=== PATIENT | male | born 1965 | race African-American/Black ===

== ENCOUNTER 2016-07-03 12:20 | Inpatient (IN) | payer OTHER ==
[2016-07-03 15:14] VITALS: BMI 25.1
--- NOTE | 2016-07-03 16:33 | HP ---
COWS - Scale Resting Pulse: 1= [place] 81-100 Sweatin= Chills/Flushing Restless Observation: 1= Difficult to Sit Still Pupil Size: 1= Pupils >than Normal Bone or Joint Aches: 2= Severe Diffuse Aches Runny Nose/ Eye Tearin= Runny Nose/Eyes GI Upset > 30mins: 2= Nausea/Diarrhea Tremor Observation: 2= Slight Tremor Visible Yawning Observation: 0= None Anxiety or Irritability: 2=Irritable/Anxious Goose Flesh Skin: 0=Smooth Skin COWS Score: 14 CIWA Score - CIWA Score Nausea/Vomitin-Mild Nausea/No Vomiting Muscle Tremors: 4-Moderate,w/Arms Extend Anxiety: 4-Mod. Anxious/Guarded Agitation: 4-Moderately Restless Paroxysmal Sweats: 1-Minimal Palms Moist Orientation: 3-Disoriented Date>2 days Tacttile Disturbances: 0-None Auditory Disturbances: 0-None Visual Disturbances: 0-None Headache: 0-None Present CIWA-Ar Total Score: 17 Admission [facility] - HPI Chief Complaint: withdrawal sx Allergies/Adverse Reactions: Allergies Allergy/AdvReac Type Severity Reaction Status Date / Time No Known Allergies Allergy Verified 07/03/16 15:54 History of Present Illness: 50 years old male with long history of alcohol, opiate, nicotine, xanax dependence, has asthma and depression is admitted to detox Exam Limitations: No Limitations - Ebola screening Have you traveled outside of the country in the last 21 days: No Have you had contact with anyone from an Ebola affected area: No Have you been sick,other than usual withdrawal symptoms: No Do you have a fever: No - Review of Systems Constitutional: Chills, Loss of Appetite, Changes in sleep, Unintentional Wgt. Loss, Unexplained wgt Loss EENT: reports: No Symptoms Reported Respiratory: reports: No Symptoms reported Cardiac: reports: No Symptoms Reported GI: reports: Nausea, Poor Appetite, Poor Fluid Intake, Abdominal cramping : reports: No Symptoms Reported Musculoskeletal: reports: Back Pain, Joint Pain, Muscle Pain, Neck Pain Integumentary: reports: No Symptoms Reported Neuro: reports: Tingling Endocrine: reports: No Symptoms Reported Hematology: reports: No Symptoms Reported Psychiatric: reports: Judgement Intact, Depressed Other Systems: Reviewed and Negative Patient History - Patient Medical History Hx Anemia: No Hx Asthma: Yes (Pt is on MDI) Hx Chronic Obstructive Pulmonary Disease (COPD): No Hx Cancer: No Hx Cardiac Disorders: No Hx Congestive Heart Failure: No Hx Hypertension: No Hx Hypercholesterolemia: No Hx Pacemaker: No HX Cerebrovascular Accident: No Hx Seizures: No Hx Dementia: No Hx Diabetes: No Hx Gastrointestinal Disorders: No Hx Liver Disease: No Hx Genitourinary Disorders: No Hx Sexually Transmitted Disorders: No Hx Renal Disease (ESRD): No Hx Thyroid Disease: No Hx Human Immunodeficiency Virus (HIV): No Hx Hepatitis C: No Hx Depression: Yes Hx Suicide Attempt: No Hx Bipolar Disorder: No Hx Schizophrenia: No - Patient Surgical History Past Surgical History: Yes Hx Orthopedic Surgery: Yes (R shoulder sx) Anesthesia Reaction: No - PPD History Previous Implant?: Yes Documented Results: Negative w/o proof Implanted On Prior [facility] Admission?: Yes Date: 12/04/11 Results: Neg PPD to be Administered?: Yes - Smoking Cessation Smoking history: Current every day smoker Have you smoked in the past 12 months: Yes Aproximately how many cigarettes per day: 20 Cigars Per Day: 0 Hx Chewing Tobacco Use: No Initiated information on smoking cessation: Yes 'Breaking Loose' booklet given: 07/03/16 - Substance & Tx. History Hx Alcohol Use: Yes Hx Substance Use: Yes Substance Use Type: Alcohol, Cocaine, Opiates, Tranquilizers Hx Substance Use Treatment: Yes - Substances Abused Heroin Route: Inhalation Frequency: Daily Amount used: 20 bags Age of first use: 25 Date of Last Use: 07/02/16 Alcohol Route: Oral Frequency: Daily Amount used: 1 pint sharonda Age of first use: 15 Date of Last Use: 07/02/16 Cocaine Route: Smoking Frequency: Daily Amount used: $120 Age of first use: 15 Date of Last Use: 07/03/16 Alprazolam (Xanax) Route: Oral Frequency: Daily Amount used: 4mg Age of first use: 45 Date of Last Use: 07/02/16 Family Disease History - Family Disease History Family Disease History: CA: Father () Admission Physical Exam [facility] - Vital Signs Vital Signs: Vital Signs - 24 hr 07/03/16 15:10 Temperature 97 F L Pulse Rate 81 Respiratory 20 Rate Blood Pressure 134/81 - Physical General Appearance: Yes: Appropriately Dressed, Mild Distress, Thin, Tremorous, Irritable, Sweating, Anxious HEENTM: Yes: Hearing grossly Normal, Normal ENT Inspection, Normocephalic, Normal Voice Respiratory: Yes: Chest Non-Tender, Lungs Clear, Normal Breath Sounds, No Respiratory Distress, No Accessory Muscle Use Neck: Yes: Supple, Trachea in good position Breast: Yes: Breasts Symetrical Cardiology: Yes: Regular Rhythm, Regular Rate, S1, S2 Abdominal: Yes: Non Tender, Soft, Increased Bowel Sounds Genitourinary: Yes: Within Normal Limits Back: Yes: Normal Inspection Musculoskeletal: Yes: full range of Motion, Gait Steady, Back pain, Muscle Pain Extremities: Yes: Normal Range of Motion, Non-Tender, Tremors Neurological: Yes: Alert, Motor Strength 5/5, Normal Response, Depressed Affect Integumentary: Yes: Warm Lymphatic: Yes: Within Normal Limits - Diagnostic (1) Alcohol dependence with uncomplicated withdrawal Current Visit: Yes Status: Acute (2) Opioid dependence with withdrawal Current Visit: Yes Status: Acute (3) Sedative, hypnotic or anxiolytic dependence with withdrawal, uncomplicated Current Visit: Yes Status: Acute (4) Cocaine dependence, uncomplicated Current Visit: Yes Status: Chronic (5) Nicotine dependence Current Visit: Yes Status: Acute Qualifiers: Nicotine product type: cigarettes Substance use status: in withdrawal Qualified Code(s): F17.213 - Nicotine dependence, cigarettes, with withdrawal (6) Asthma Current Visit: Yes Status: Acute Qualifiers: Asthma severity: mild intermittent Asthma complication type: with status asthmaticus Qualified Code(s): J45.22 - Mild intermittent asthma with status asthmaticus (7) Weight loss Current Visit: Yes Status: Acute Cleared for Admission [facility] - Detox or Rehab [facility] Level of Care: Medically Managed Detox Regimen/Protocol: Methadone/Librium [facility] Breath Alcohol Content Breath Alcohol Content: 0 Vital Signs - Vital Signs Vital Signs Refused: No Temperature: 97 F Temperature Source: Oral Pulse Rate: 81 Respiratory Rate: 20 Blood Pressure: 134/81 BP Location: Left Arm Blood Pressure Position: Sitting - Height Height: 5 ft 10 in - Weight Weight: 175 lb Weight Measurement Method: Standing Scale Body Mass Index (BMI): 25.1 - Bowel Function Bowel Movement: Yes Urine Drug Screen - Control Is Test Valid: Yes - Results Drug Screen Negative: No Urine Drug Screen Results: LIA-Cocaine, OPI-Opiates, MET-Methamphetamine, BZO- Benzodiazepines
[2016-07-03] MEDS ORDERED: MAGNESIUM CITRATE 300 ML BOTTLE PO PRN (16:40)
[2016-07-03] MEDS ORDERED: MAG HYDROX/AL HYDROX/SIMETH 30 ML UNIT-DOSE CUP PO PRN (16:40)
[2016-07-03] MEDS ORDERED: LOPERAMIDE HCL 2 MG CAPSULE PO PRN (16:40)
[2016-07-03] MEDS ORDERED: NICOTINE POLACRILEX 4 MG GUM BC PRN (16:40)
[2016-07-03] MEDS ORDERED: MAGNESIUM HYDROX 2400MG/30ML ORAL SUSPENSION 30 ML CUP PO PRN (16:40)
[2016-07-03] MEDS ORDERED: METHADONE HCL 10 MG TABLET (FOR DETOX USE ONLY) PO ONE ×2 (16:40→23:00)
[2016-07-03] MEDS ORDERED: IBUPROFEN 400 MG TABLET (FP) PO PRN (16:40)
[2016-07-03] MEDS ORDERED: guaiFENesin/D-METHORPHAN HB 10 ML UNIT-DOSE CUPS PO PRN (16:40)
[2016-07-03] MEDS ORDERED: MENTHOL/PHENOL 1 EACH UD MM PRN (16:40)
[2016-07-03] MEDS ORDERED: ACETAMINOPHEN 325 MG TABLET (FP) PO PRN (16:40)
[2016-07-03] MEDS ORDERED: P-EPHED 60MG/TRIPROLIDI 2.5MG TABLET PO PRN (16:40)
[2016-07-03] MEDS ORDERED: ALBUTEROL SO4 6.7 GM HFA INHALER IH PRN (16:44)
[2016-07-03] MEDS: chlordiazePOXIDE HCL 25 MG CAPSULE PO PRN (17:56)
[2016-07-03] MEDS: diphenhydrAMINE HCL 50 MG CAPSULE PO PRN (22:09)
[2016-07-03] MEDS: THIAMINE HCL 100 MG TABLET (FP) PO SCH (22:09)
[2016-07-03] MEDS: chlordiazePOXIDE HCL 25 MG CAPSULE PO SCH (22:09)
[2016-07-04 01:16] LABS: URINE APPEARANCE CLEAR; URINE BILIRUBIN NEGATIVE (NEGATIVE); URINE BLOOD NEGATIVE (NEGATIVE); URINE COLOR YELLOW; URINE GLUCOSE (UA) NEGATIVE (NEGATIVE); URINE KETONE NEGATIVE (NEGATIVE); URINE LEUK ESTERASE NEGATIVE (NEGATIVE); URINE NITRITE NEGATIVE (NEGATIVE); URINE PROTEIN NEGATIVE (NEGATIVE); URINE UROBILINOGEN NEGATIVE E.U./dl (0.2-1.0)
[2016-07-04] MEDS: chlordiazePOXIDE HCL 25 MG CAPSULE PO SCH ×4 (05:58→22:09)
[2016-07-04 09:51] LABS: MCH 28.2 pg (25.7-33.7); MCHC 33.1 g/dl (32.0-35.9); MEAN CELL VOLUME 85.2 fl (80-96); MEAN PLT VOLUME 7.7 fl (7.5-11.1); PLATELET COUNT 223 K/MM3 (134-434); RDW 12.7 % (11.9-15.9); WHITE BLOOD COUNT 4.6 K/mm3 (4.0-10.0)
--- NOTE | 2016-07-04 09:55 | PN ---
[facility] CIWA - CIWA Score Nausea/Vomitin-No Nausea/No Vomiting Muscle Tremors: 4-Moderate,w/Arms Extend Anxiety: 4-Mod. Anxious/Guarded Agitation: 4-Moderately Restless Paroxysmal Sweats: 1-Minimal Palms Moist Orientation: 0-Oriented Tacttile Disturbances: 3-Moderate Itch/Numb/Burn Auditory Disturbances: 0-None Visual Disturbances: 0-None Headache: 0-None Present CIWA-Ar Total Score: 16 S COWS - Scale Resting Pulse: 0= [place] 80 or Below Sweatin= Chills/Flushing Restless Observation: 3= Extraneous Movement Pupil Size: 2= Moderately Dilated Bone or Joint Aches: 4=Acute Joint/Muscle Pain Runny Nose/ Eye Tearin= Nasal Congestion GI Upset > 30mins: 1= Stomach Cramp Tremor Observation of Outstretched Hands: 1= Tremor [place], Not Seen Yawning Observation: 2= >3x During Session Anxiety or Irritability: 2=Irritable/Anxious Goose Flesh Skin: 0=Smooth Skin COWS Score: 17 [facility] Progress Note (SOAP) Subjective: ANXIETY,SWEATS,CHILLS,FATIGUE. Objective: 07/04/16 09:54 Vital Signs Temperature 96.8 F L 07/04/16 09:23 Pulse Rate 71 07/04/16 09:23 Respiratory Rate 19 07/04/16 09:23 Blood Pressure 104/70 07/04/16 09:23 O2 Sat by Pulse Oximetry (%) Laboratory Last Values Urine Color Yellow 07/03/16 23:02 Urine Appearance Clear 07/03/16 23:02 Urine pH 5.0 (5.0-8.0) 07/03/16 23:02 Ur Specific [place] 1.031 (1.001-1.035) 07/03/16 23:02 Urine Protein Negative (NEGATIVE) 07/03/16 23:02 Urine Glucose (UA) Negative (NEGATIVE) 07/03/16 23:02 Urine Ketones Negative (NEGATIVE) 07/03/16 23:02 Urine Blood Negative (NEGATIVE) 07/03/16 23:02 Urine Nitrite Negative (NEGATIVE) 07/03/16 23:02 Urine Bilirubin Negative (NEGATIVE) 07/03/16 23:02 Urine Urobilinogen Negative E.U./dl (0.2-1.0) 07/03/16 23:02 Ur Leukocyte Esterase Negative (NEGATIVE) 07/03/16 23:02 Assessment: 07/04/16 09:54 WITHDRAWAL SX Plan: CONTINUE DETOX
[2016-07-04 10:00] LABS: ALBUMIN 4.2 g/dl (3.4-5.0); BILIRUBIN,TOTAL 0.3 mg/dL (0.2-1.0); CALCIUM 9.2 mg/dL (8.5-10.1); COCKROFT - GAULT 65.41; CREATININE 1.5 mg/dL (0.7-1.3); TOT PROT 7.1 g/dl (6.4-8.2)
[2016-07-04] MEDS ORDERED: METHADONE HCL 10 MG TABLET (FOR DETOX USE ONLY) PO SCH (10:00)
[2016-07-04] MEDS: PRENATAL VITAMINS W/ FOLIC ACID TABLET (FP) PO SCH (10:06)
[2016-07-04] MEDS: NICOTINE 21 MG/24 HOURS TOPICAL PATCH TD SCH (10:08)
--- NOTE | 2016-07-04 10:51 | CONSULT ---
[facility] Psychiatric Consult - Data Date of interview: 07/04/16 Admission source: [facility] Identifying data: This is 60 years old male with history of Bipolar disorder intoxicated with: Alcohol, Opioids, Cocaine, Xanax and Nicotine Substance Abuse History: - Smoking Cessation. Smoking history: Current every day smoker. Have you smoked in the past 12 months: Yes. Aproximately how many cigarettes per day: 20. Cigars Per Day: 0. Hx Chewing Tobacco Use: No. Initiated information on smoking cessation: Yes. 'Breaking Loose' booklet given : 07/03/16. - Substance & Tx. History. Hx Alcohol Use: Yes. Hx Substance Use : Yes. Substance Use Type: Alcohol, Cocaine, Opiates, Tranquilizers. Hx Substance Use Treatment: Yes. - Substances Abused. Heroin. Route: Inhalation. Frequency: Daily. Amount used: 20 bags. Age of first use: 25. Date of Last Use: 07/02/16. Alcohol. Route: Oral. Frequency: Daily. Amount used: 1 pint sharonda. Age of first use: 15. Date of Last Use: 07/02/16. Cocaine. Route: Smoking. Frequency: Daily. Amount used: $120. Age of first use: 15. Date of Last Use: 07/03/16. Alprazolam (Xanax). Route: Oral. Frequency: Daily. Amount used: 4mg. Age of first use: 45. Date of Last Use: Medical History: Asthma, Seizure history, Syncope history Psychiatric History: Patient is poor historyan, as per computer there is a history of Bipolar disorder, patient reports no medications taking prior to admission Physical/Sexual Abuse/Trauma History: Denies Additional Comment: Observation. Detox Unit [place] Protocol Mental Status Exam - Mental Status Exam Alert and Oriented to: Person Cognitive Function: Fair Patient Appearance: Unkempt Mood: Sad Affect: Flat Patient Behavior: Sedated, Fatigued Speech Pattern: Delayed Voice Loudness: Moderately Soft/Quiet Thought Process: Circumstantial Thought Disorder: Present Hallucinations: Denies Suicidal Ideation: Denies Homicidal Ideation: Denies Insight/Judgement: Fair Sleep: Difficulty falling asleep Appetite: Weight loss Muscle strength/Tone: Mild Hypotonicity Gait/Station: Shuffling Additional Comments: Observation. Detox Unit Care Protocol Psychiatric Findings - Problem List ([place] 1, 2,3) (1) Alcohol dependence with uncomplicated withdrawal Current Visit: Yes Status: Acute (2) Nicotine dependence Current Visit: Yes Status: Acute Qualifiers: Nicotine product type: cigarettes Substance use status: in withdrawal Qualified Code(s): F17.213 - Nicotine dependence, cigarettes, with withdrawal (3) Opioid dependence with withdrawal Current Visit: Yes Status: Acute (4) Sedative, hypnotic or anxiolytic dependence with withdrawal, uncomplicated Current Visit: Yes Status: Acute (5) Cocaine dependence, uncomplicated Current Visit: Yes Status: Chronic (6) Alcohol dependence Current Visit: No Status: Active (7) Bipolar disorder Current Visit: No Status: Active (8) Cocaine dependence Current Visit: No Status: Active (9) Opioid dependence Current Visit: No Status: Active - Initial Treatment Plan Initial Treatment Plan: Observation. Detox Unit Care Protocol
--- NOTE | 2016-07-04 11:48 | EKG ---
Test Reason : Blood Pressure : / mmHG Vent. Rate : 064 BPM Atrial Rate : 064 BPM P-R Int : 222 ms QRS Dur : 110 ms QT Int : 412 ms P-R-T Axes : 060 021 039 degrees QTc Int : 425 ms SINUS RHYTHM WITH 1ST DEGREE A-V BLOCK INCOMPLETE RIGHT BUNDLE BRANCH BLOCK BORDERLINE ECG NO PREVIOUS ECGS AVAILABLE Confirmed by ALLISON DELCID MD ([id number]) on 07/04/2016 11:48:09 AM Referred By: Confirmed By:ALLISON DELCID MD
[2016-07-04 13:50] LABS: HIV 1 & 2 AB NEGATIVE; HIV 1 AGp24 NEGATIVE
[2016-07-04] MEDS: THIAMINE HCL 100 MG TABLET (FP) PO SCH (22:08)
[2016-07-04] MEDS: diphenhydrAMINE HCL 50 MG CAPSULE PO PRN (22:08)
[2016-07-05] MEDS: chlordiazePOXIDE HCL 25 MG CAPSULE PO SCH ×3 (06:54→17:40)
[2016-07-05] MEDS: PRENATAL VITAMINS W/ FOLIC ACID TABLET (FP) PO SCH (10:05)
[2016-07-05] MEDS: NICOTINE 21 MG/24 HOURS TOPICAL PATCH TD SCH (10:05)
[2016-07-05] MEDS: METHADONE HCL 5 MG TABLET (FOR DETOX USE ONLY) PO SCH (10:05)
--- NOTE | 2016-07-05 10:31 | PN ---
[facility] CIWA - CIWA Score Nausea/Vomitin-Mild Nausea/No Vomiting Muscle Tremors: 4-Moderate,w/Arms Extend Anxiety: 3 Agitation: 3 Paroxysmal Sweats: 3 Orientation: 0-Oriented Tacttile Disturbances: 0-None Auditory Disturbances: 0-None Visual Disturbances: 0-None Headache: 0-None Present CIWA-Ar Total Score: 14 S COWS - Scale Resting Pulse: 1= [place] 81-100 Sweatin=Flushed/Facial Moisture Restless Observation: 1= Difficult to Sit Still Pupil Size: 0= Normal to Room Light Bone or Joint Aches: 1= Mild Discomfort Runny Nose/ Eye Tearin= Runny Nose/Eyes GI Upset > 30mins: 2= Nausea/Diarrhea Tremor Observation of Outstretched Hands: 2= Slight Tremor Visible Yawning Observation: 1= 1-2x During Session Anxiety or Irritability: 2=Irritable/Anxious Goose Flesh Skin: 0=Smooth Skin COWS Score: 14 [facility] Progress Note (SOAP) Subjective: Anxiety,tremors,sweating,interrupted sleep,restless,muscle aches Objective: 07/05/16 10:28 Vital Signs - 8 hr 07/05/16 03:30 Respiratory 18 Rate Laboratory Tests 07/03/16 07/03/16 07/04/16 06:00 23:02 06:00 WBC 4.6 RBC 4.76 Hgb 13.4 Hct 40.6 MCV 85.2 MCHC 33.1 RDW 12.7 Plt Count 223 MPV 7.7 Sodium Potassium Chloride Carbon Dioxide Anion Gap BUN Creatinine Creat Clearance w eGFR Random Glucose Calcium Total Bilirubin AST ALT Alkaline Phosphatase Total Protein Albumin Urine Color Yellow Urine Appearance Clear Urine pH 5.0 Ur Specific [place] 1.031 Urine Protein Negative Urine Glucose (UA) Negative Urine Ketones Negative Urine Blood Negative Urine Nitrite Negative Urine Bilirubin Negative Urine Urobilinogen Negative Ur Leukocyte Esterase Negative RPR Titer HIV 1&2 Antibody Screen Negative HIV P24 Antigen Negative 07/04/16 07/04/16 06:00 06:00 WBC RBC Hgb Hct MCV MCHC RDW Plt Count MPV Sodium 141 Potassium 4.1 Chloride 104 Carbon Dioxide 29 Anion Gap 8 BUN 17 Creatinine 1.5 H D Creat Clearance w eGFR 49.34 Random Glucose 116 H D Calcium 9.2 Total Bilirubin 0.3 AST 29 D ALT 27 Alkaline Phosphatase 66 Total Protein 7.1 D Albumin 4.2 D Urine Color Urine Appearance Urine pH Ur Specific [place] Urine Protein Urine Glucose (UA) Urine Ketones Urine Blood Urine Nitrite Urine Bilirubin Urine Urobilinogen Ur Leukocyte Esterase RPR Titer Nonreactive HIV 1&2 Antibody Screen HIV P24 Antigen labs noted Assessment: 07/05/16 10:30 Withdrawal sx. Plan: Continue detox
[2016-07-05] MEDS: THIAMINE HCL 100 MG TABLET (FP) PO SCH (22:00)
[2016-07-05] MEDS: chlordiazePOXIDE 5 MG CAPSULE PO SCH (22:00)
[2016-07-05] MEDS: diphenhydrAMINE HCL 50 MG CAPSULE PO PRN (22:01)
[2016-07-06] MEDS: chlordiazePOXIDE 5 MG CAPSULE PO SCH ×2 (06:04→10:18)
[2016-07-06] MEDS: NICOTINE 21 MG/24 HOURS TOPICAL PATCH TD SCH (10:18)
[2016-07-06] MEDS: PRENATAL VITAMINS W/ FOLIC ACID TABLET (FP) PO SCH (10:18)
[2016-07-06] MEDS: METHADONE HCL 5 MG TABLET (FOR DETOX USE ONLY) PO SCH (10:18)
[2016-07-06 11:31] VITALS: PULSE 74
[2016-07-06 13:48] VITALS: BP 108/69; TEMP 96.6
[2016-07-06] MEDS: chlordiazePOXIDE HCL 25 MG CAPSULE PO PRN (13:51)
--- NOTE | 2016-07-06 16:36 | DS ---
[facility] Detox Discharge Summary Admission Date: 07/03/16 Discharge Date: 07/06/16 - History Present History: Alcohol Dependence, Cocaine Dependence, Opioid Dependence, Sedative Dependence Additional Comments: ADVISED PATIENT TO FOLLOW-UP WITH [facility] FOR GENERAL MEDICAL ASSESSMENT. Pertinent Past History: Asthma, Depression. - Physical Exam Results Vital Signs: Vital Signs Temperature 96.6 F L 07/06/16 13:47 Pulse Rate 74 07/06/16 13:47 Respiratory Rate 18 07/06/16 13:47 Blood Pressure 108/69 07/06/16 13:47 O2 Sat by Pulse Oximetry (%) Pertinent Admission Physical Exam Findings: WITHDRAWAL SYMPTOMS. Laboratory Last Values WBC 4.6 K/mm3 (4.0-10.0) 07/04/16 06:00 RBC 4.76 M/mm3 (4.00-5.60) 07/04/16 06:00 Hgb 13.4 GM/dL (11.7-16.9) 07/04/16 06:00 Hct 40.6 % (35.4-49) 07/04/16 06:00 MCV 85.2 fl (80-96) 07/04/16 06:00 MCHC 33.1 g/dl (32.0-35.9) 07/04/16 06:00 RDW 12.7 % (11.9-15.9) 07/04/16 06:00 Plt Count 223 K/MM3 (134-434) 07/04/16 06:00 MPV 7.7 fl (7.5-11.1) 07/04/16 06:00 Sodium 141 mmol/L (136-145) 07/04/16 06:00 Potassium 4.1 mmol/L (3.5-5.1) 07/04/16 06:00 Chloride 104 mmol/L (98-107) 07/04/16 06:00 Carbon Dioxide 29 mmol/L (21-32) 07/04/16 06:00 Anion Gap 8 (8-16) 07/04/16 06:00 BUN 17 mg/dL (7-18) 07/04/16 06:00 Creatinine 1.5 mg/dL (0.7-1.3) H D 07/04/16 06:00 Creat Clearance w eGFR 49.34 (>60) 07/04/16 06:00 Random Glucose 116 mg/dL (74-106) H D 07/04/16 06:00 Calcium 9.2 mg/dL (8.5-10.1) 07/04/16 06:00 Total Bilirubin 0.3 mg/dL (0.2-1.0) 07/04/16 06:00 AST 29 U/L (15-37) D 07/04/16 06:00 ALT 27 U/L (12-78) 07/04/16 06:00 Alkaline Phosphatase 66 U/L (45-117) 07/04/16 06:00 Total Protein 7.1 g/dl (6.4-8.2) D 07/04/16 06:00 Albumin 4.2 g/dl (3.4-5.0) D 07/04/16 06:00 Urine Color Yellow 07/03/16 23:02 Urine Appearance Clear 07/03/16 23:02 Urine pH 5.0 (5.0-8.0) 07/03/16 23:02 Ur Specific [place] 1.031 (1.001-1.035) 07/03/16 23:02 Urine Protein Negative (NEGATIVE) 07/03/16 23:02 Urine Glucose (UA) Negative (NEGATIVE) 07/03/16 23:02 Urine Ketones Negative (NEGATIVE) 07/03/16 23:02 Urine Blood Negative (NEGATIVE) 07/03/16 23:02 Urine Nitrite Negative (NEGATIVE) 07/03/16 23:02 Urine Bilirubin Negative (NEGATIVE) 07/03/16 23:02 Urine Urobilinogen Negative E.U./dl (0.2-1.0) 07/03/16 23:02 Ur Leukocyte Esterase Negative (NEGATIVE) 07/03/16 23:02 RPR Titer Nonreactive (NONREACTIVE) 07/04/16 06:00 HIV 1&2 Antibody Screen Negative 07/03/16 06:00 HIV P24 Antigen Negative 07/03/16 06:00 LABS NOTED. - Treatment Hospital Course: Detoxed Safely - Medication Discharge Medications: Ambulatory Orders Albuterol Sulfate Inhaler - [Ventolin Hfa Inhaler -] 2 inh PO Q4H PRN 07/03/16 - Diagnosis (1) Alcohol dependence with uncomplicated withdrawal Status: Acute (2) Asthma Status: Chronic Qualifiers: Asthma severity: mild intermittent Asthma complication type: uncomplicated Qualified Code(s): J45.20 - Mild intermittent asthma, uncomplicated (3) Nicotine dependence Status: Chronic Qualifiers: Nicotine product type: cigarettes Substance use status: in withdrawal Qualified Code(s): F17.213 - Nicotine dependence, cigarettes, with withdrawal (4) Opioid dependence with withdrawal Status: Acute (5) Sedative, hypnotic or anxiolytic dependence with withdrawal, uncomplicated Status: Acute (6) Cocaine dependence, uncomplicated Status: Acute (7) Weight loss Status: Acute - AMA Did Patient Leave Against Medical Advice: Yes (PATIENT DID NOT WANT TO STAY ON UNIT TO COMPLETE DETOX REGIMEN.)
[2016-07-06] MEDS ORDERED: chlordiazePOXIDE HCL 10 MG CAPSULE PO SCH (23:00)
[2016-07-07] MEDS ORDERED: METHADONE HCL 10 MG TABLET (FOR DETOX USE ONLY) PO SCH (10:00)
[2016-07-08] MEDS ORDERED: METHADONE HCL 5 MG TABLET (FOR DETOX USE ONLY) PO SCH (06:00)
== END 2016-07-06 15:02 | disposition left against medical advice (07) | DRG 770 ==
LOC: YASAS 12:20 → Y3N 16:54
PROVIDERS: ADMIT Internal Medicine; ATTEND Internal Medicine
PROC: HZ2ZZZZ Detoxification Services for Substance Abuse Treatment (ICD-10-PCS; principal; 2016-07-06)
DX: F11.23 Opioid dependence with withdrawal (principal); F13.230 Sedative, hypnotic or anxiolytic dependence with withdrawal, uncomplicated; F10.230 Alcohol dependence with withdrawal, uncomplicated; F14.20 Cocaine dependence, uncomplicated; F17.210 Nicotine dependence, cigarettes, uncomplicated; F31.9 Bipolar disorder, unspecified; J45.20 Mild intermittent asthma, uncomplicated; R63.4 Abnormal weight loss; Z68.25 Body mass index [BMI] 25.0-25.9, adult
CPT/HCPCS: 36415; 80053; 81003; 85027; 86593; 87389; 93005; 93010

== ENCOUNTER 2017-07-14 09:18 | Inpatient (IN) | payer OTHER ==
[2017-07-14 09:39] VITALS: BMI 25.2
--- NOTE | 2017-07-14 13:37 | HP ---
COWS - Scale Resting Pulse: 1= [place] 81-100 Sweatin= Chills/Flushing Restless Observation: 1= Difficult to Sit Still Pupil Size: 1= Pupils >than Normal Bone or Joint Aches: 2= Severe Diffuse Aches Runny Nose/ Eye Tearin= Nasal Congestion GI Upset > 30mins: 1= Stomach Cramp Tremor Observation: 2= Slight Tremor Visible Yawning Observation: 2= >3x During Session Anxiety or Irritability: 2=Irritable/Anxious Goose Flesh Skin: 0=Smooth Skin COWS Score: 14 CIWA Score - CIWA Score Nausea/Vomitin-Mild Nausea/No Vomiting Muscle Tremors: 4-Moderate,w/Arms Extend Anxiety: 4-Mod. Anxious/Guarded Agitation: 4-Moderately Restless Paroxysmal Sweats: 1-Minimal Palms Moist Orientation: 1-Uncertain about Date Tacttile Disturbances: 1-Very Mild Itch/Numbness Auditory Disturbances: 0-None Visual Disturbances: 0-None Headache: 1-Very Mild CIWA-Ar Total Score: 17 Admission ROS S - HPI Chief Complaint: withdrawal sx opioid Allergies/Adverse Reactions: Allergies Allergy/AdvReac Type Severity Reaction Status Date / Time No Known Allergies Allergy Verified 07/14/17 13:35 History of Present Illness: 51 years old male with long history of opioid nicotine dependence has asthma is admitted to detox Exam Limitations: No Limitations - Ebola screening Have you traveled outside of the country in the last 21 days: No (N) Have you had contact with anyone from an Ebola affected area: No Have you been sick,other than usual withdrawal symptoms: No Do you have a fever: No - Review of Systems Constitutional: Changes in sleep EENT: reports: No Symptoms Reported Respiratory: reports: No Symptoms reported Cardiac: reports: No Symptoms Reported GI: reports: Nausea, Poor Fluid Intake, Abdominal cramping : reports: No Symptoms Reported Musculoskeletal: reports: Back Pain, Joint Pain, Muscle Pain, Neck Pain Integumentary: reports: No Symptoms Reported Neuro: reports: Tremors Endocrine: reports: No Symptoms Reported Hematology: reports: No Symptoms Reported Psychiatric: reports: Judgement Intact, Anxious, Depressed Other Systems: Reviewed and Negative Patient History - Patient Medical History Hx Anemia: No Hx Asthma: Yes (Pt is on MDI) Hx Chronic Obstructive Pulmonary Disease (COPD): No Hx Cancer: No Hx Cardiac Disorders: No Hx Congestive Heart Failure: No Hx Hypertension: No Hx Hypercholesterolemia: No Hx Pacemaker: No HX Cerebrovascular Accident: No Hx Seizures: No Hx Dementia: No Hx Diabetes: No Hx Gastrointestinal Disorders: No Hx Liver Disease: No Hx Genitourinary Disorders: No Hx Sexually Transmitted Disorders: No Hx Renal Disease (ESRD): No Hx Thyroid Disease: No Hx Human Immunodeficiency Virus (HIV): No Hx Hepatitis C: No Hx Depression: Yes Hx Suicide Attempt: No Hx Bipolar Disorder: No Hx Schizophrenia: No - Patient Surgical History Past Surgical History: Yes Hx Orthopedic Surgery: Yes (R shoulder sx) Anesthesia Reaction: No - PPD History Previous Implant?: Yes Documented Results: Negative w/proof Implanted On Prior [facility] Admission?: Yes Date: 07/05/16 Results: Neg PPD to be Administered?: Yes - Smoking Cessation Smoking history: Current every day smoker Have you smoked in the past 12 months: Yes Aproximately how many cigarettes per day: 10 Cigars Per Day: 0 Hx Chewing Tobacco Use: No Initiated information on smoking cessation: Yes 'Breaking Loose' booklet given: 07/14/17 - Substance & Tx. History Hx Alcohol Use: Yes Hx Substance Use: Yes Substance Use Type: Alcohol, Cocaine, Opiates, Tranquilizers Hx Substance Use Treatment: Yes (06/2016) - Substances Abused Alcohol Route: Oral Frequency: Daily Amount used: 1 PINT DAILY (VODKA) Age of first use: 11 Date of Last Use: 07/12/17 Heroin Route: Injection Frequency: Daily Amount used: 1 BUNDLE DAILY $100 Age of first use: 22 Date of Last Use: 07/13/17 Cocaine Route: Inhalation Frequency: Daily Amount used: 1/2 GRAM DAILY Age of first use: 21 Date of Last Use: 07/13/17 Marijuana/Hashish Route: Smoking Frequency: 1-2 times per week Amount used: 1 JOINT DAILY Age of first use: 21 Date of Last Use: 07/11/17 Family Disease History - Family Disease History Family Disease History: CA: Father (), Mother (pancreatic) Admission Physical Exam BHS - Vital Signs Vital Signs: Vital Signs - 24 hr 07/14/17 09:31 Temperature 95.4 F L Pulse Rate 96 H Respiratory 20 Rate Blood Pressure 123/74 - Physical General Appearance: Yes: Appropriately Dressed, Moderate Distress, Thin, Tremorous, Irritable, Sweating, Anxious HEENTM: Yes: Hearing grossly Normal, Normocephalic, Normal Voice Respiratory: Yes: Chest Non-Tender, No Respiratory Distress, No Accessory Muscle Use, Wheezing, Inspiration Neck: Yes: Supple, Trachea in good position Breast: Yes: Breasts Symetrical, No Discharge Cardiology: Yes: S1, S2, Tachycardia, Irregular Abdominal: Yes: Non Tender, Soft Genitourinary: Yes: Within Normal Limits Back: Yes: Normal Inspection Musculoskeletal: Yes: full range of Motion, Gait Steady, Back pain, Muscle Pain Extremities: Yes: Normal Inspection (left inner elbow iv heroin prabha), Normal Range of Motion, Non-Tender Neurological: Yes: Alert, Motor Strength 5/5, Normal Response, Depressed Affect Integumentary: Yes: Warm, Track Carrillo (left inner elbow) Lymphatic: Yes: Within Normal Limits - Diagnostic (1) Alcohol dependence with uncomplicated withdrawal Current Visit: Yes Status: Acute (2) Opioid dependence with withdrawal Current Visit: Yes Status: Acute (3) Asthma Current Visit: Yes Status: Chronic Qualifiers: Asthma severity: mild Asthma persistence: intermittent Asthma complication type: uncomplicated Qualified Code(s): J45.20 - Mild intermittent asthma, uncomplicated (4) Nicotine dependence Current Visit: Yes Status: Acute Qualifiers: Nicotine product type: cigarettes Substance use status: in withdrawal Qualified Code(s): F17.213 - Nicotine dependence, cigarettes, with withdrawal Cleared for Admission [facility] - Detox or Rehab [facility] Level of Care: Medically Managed Detox Regimen/Protocol: Methadone/Librium [facility] Breath Alcohol Content Breath Alcohol Content: 0 Urine Drug Screen - Control Is Test Valid: Yes - Results Drug Screen Negative: No Urine Drug Screen Results: LIA-Cocaine, OPI-Opiates, BZO-Benzodiazepines
[2017-07-14] MEDS ORDERED: LOPERAMIDE HCL 2 MG CAPSULE PO PRN (13:48)
[2017-07-14] MEDS ORDERED: P-EPHED 60MG/TRIPROLIDI 2.5MG TABLET PO PRN (13:48)
[2017-07-14] MEDS ORDERED: MENTHOL/PHENOL 1 EACH UD MM PRN (13:48)
[2017-07-14] MEDS ORDERED: MAGNESIUM HYDROX 2400MG/30ML ORAL SUSPENSION 30 ML CUP PO PRN (13:48)
[2017-07-14] MEDS ORDERED: ACETAMINOPHEN 325 MG TABLET (FP) PO PRN (13:48)
[2017-07-14] MEDS ORDERED: IBUPROFEN 400 MG TABLET (FP) PO PRN (13:48)
[2017-07-14] MEDS ORDERED: guaiFENesin/D-METHORPHAN HB 10 ML UNIT-DOSE CUPS PO PRN (13:48)
[2017-07-14] MEDS ORDERED: MAG HYDROX/AL HYDROX/SIMETH 30 ML UNIT-DOSE CUP PO PRN (13:48)
[2017-07-14] MEDS ORDERED: NICOTINE POLACRILEX 2 MG GUM BUC PRN (13:48)
[2017-07-14] MEDS ORDERED: MAGNESIUM CITRATE 300 ML BOTTLE PO PRN (13:48)
[2017-07-14] MEDS ORDERED: chlordiazePOXIDE HCL 25 MG CAPSULE PO PRN (13:48)
[2017-07-14] MEDS ORDERED: ALBUTEROL SO4 18 GM HFA INHALER IH PRN (13:50)
[2017-07-14] MEDS ORDERED: ALBUTEROL SO4 0.083% IH SOL 2.5 MG/3 ML VIAL.NEB. NEB PRN (14:54)
[2017-07-14] MEDS ORDERED: METHADONE HCL 10 MG TABLET (FOR DETOX USE ONLY) PO ONE ×2 (15:30→23:00)
[2017-07-14] MEDS: NICOTINE 14 MG/24 HOURS TOPICAL PATCH TD SCH (15:43)
--- NOTE | 2017-07-14 16:41 | CONSULT ---
[facility] Psychiatric Consult - Data Date of interview: 07/14/17 Admission source: [facility] Identifying data: Readmission to [facility] for this 51 y/o AA male seeking detox treatment on for alcohol,opioid,cocaine and cannabis dependence.Patient is ,a father of one,homeless,unemployed and supported on Public Assistance. Substance Abuse History: Confirmed by the patient in this session.Mr Godwin endorses a 40+ year history of alcohol abuse and approximately 25 years of continuous use of heroin,cocaine and marihuana.Details in current [facility] report as follows : Smoking history: Current every day smoker. Have you smoked in the past 12 months: Yes. Aproximately how many cigarettes per day: 10. Cigars Per Day: 0. Hx Chewing Tobacco Use: No. Initiated information on smoking cessation : Yes. 'Breaking Loose' booklet given: 07/14/17. - Substance & Tx. History. Hx Alcohol Use: Yes. Hx Substance Use: Yes. Substance Use Type: Alcohol, Cocaine, Opiates, Tranquilizers. Hx Substance Use Treatment: Yes (06/2016). - Substances Abused. Alcohol. Route: Oral. Frequency: Daily. Amount used: 1 PINT DAILY (VODKA). Age of first use: 11. Date of Last Use: 07/12/17. Heroin. Route: Injection. Frequency: Daily. Amount used: 1 BUNDLE DAILY $ 100. Age of first use: 22. Date of Last Use: 07/13/17. Cocaine. Route: Inhalation. Frequency: Daily. Amount used: 1/2 GRAM DAILY. Age of first use: 21. Date of Last Use: 07/13/17. Marijuana/Hashish. Route: Smoking. Frequency: 1-2 times per week. Amount used: 1 JOINT DAILY. Age of first use: 21. Date of Last Use: 07/11/17 Medical History: Bronchial asthma and a history of orthosurgery (right shoulder) . Psychiatric History: Patient denies. Physical/Sexual Abuse/Trauma History: Patient denies. Additional Comment: Urine Drug Screen Results: LIA-Cocaine, OPI-Opiates, BZO- Benzodiazepines.Noted. Mental Status Exam - Mental Status Exam Alert and Oriented to: Time, Place, Person Cognitive Function: Good Patient Appearance: Well Groomed Mood: Hopeful, Euthymic Affect: Appropriate, Normal Range Patient Behavior: Fatigued, Appropriate, Cooperative Speech Pattern: Clear, Appropriate Voice Loudness: Normal Thought Process: Intact, Goal Oriented Thought Disorder: Not Present Hallucinations: Denies Suicidal Ideation: Denies Homicidal Ideation: Denies Insight/Judgement: Poor Sleep: Poorly, Difficulty falling asleep Appetite: Good (observed eating his meal on admission) Muscle strength/Tone: Normal Gait/Station: Normal Psychiatric Findings - Problem List ([place] 1, 2,3) (1) Opioid dependence with withdrawal Current Visit: Yes Status: Acute (2) Alcohol dependence with uncomplicated withdrawal Current Visit: Yes Status: Acute (3) Cocaine dependence Current Visit: Yes Status: Active (4) Nicotine dependence Current Visit: Yes Status: Acute Qualifiers: Nicotine product type: cigarettes Substance use status: in withdrawal Qualified Code(s): F17.213 - Nicotine dependence, cigarettes, with withdrawal (5) Insomnia Current Visit: Yes Status: Acute - Initial Treatment Plan Initial Treatment Plan: Psychoeducation.Sleep hygiene.Detoxification in progress.Ambien 5 mg po hs prn.Patient is made aware of risk of parasomnias ( sleep-walking).Consents (verbally) to this careplan.Observation.
[2017-07-14 18:07] LABS: URINE APPEARANCE CLOUDY; URINE BILIRUBIN NEGATIVE (<2.0 mg/dL); URINE BLOOD NEGATIVE (NEGATIVE); URINE COLOR DKYELLOW; URINE GLUCOSE (UA) NEGATIVE (NEGATIVE); URINE KETONE 1+ (NEGATIVE); URINE LEUK ESTERASE NEGATIVE (NEGATIVE); URINE NITRITE NEGATIVE (NEGATIVE); URINE PROTEIN NEGATIVE (NEGATIVE)
[2017-07-14] MEDS ORDERED: MELATONIN 5 MG TABLETS PO PRN (22:00)
[2017-07-14] MEDS: THIAMINE HCL 100 MG TABLET (FP) PO SCH (22:09)
[2017-07-14] MEDS: chlordiazePOXIDE HCL 25 MG CAPSULE PO SCH (22:09)
[2017-07-14] MEDS: ZOLPIDEM TARTRATE 5 MG TABLET PO PRN (22:10)
[2017-07-15] MEDS: chlordiazePOXIDE HCL 25 MG CAPSULE PO SCH ×4 (05:11→22:24)
--- NOTE | 2017-07-15 09:44 | PN ---
S CIWA - CIWA Score Nausea/Vomitin-No Nausea/No Vomiting Muscle Tremors: 4-Moderate,w/Arms Extend Anxiety: 4-Mod. Anxious/Guarded Agitation: 4-Moderately Restless Paroxysmal Sweats: 1-Minimal Palms Moist Orientation: 0-Oriented Tacttile Disturbances: 0-None Auditory Disturbances: 0-None Visual Disturbances: 0-None Headache: 0-None Present CIWA-Ar Total Score: 13 BHS COWS - Scale Resting Pulse: 0= [place] 80 or Below Sweatin= Chills/Flushing Restless Observation: 3= Extraneous Movement Pupil Size: 0= Normal to Room Light Bone or Joint Aches: 4=Acute Joint/Muscle Pain Runny Nose/ Eye Tearin= Nasal Congestion GI Upset > 30mins: 1= Stomach Cramp Tremor Observation of Outstretched Hands: 2= Slight Tremor Visible Yawning Observation: 0= None Anxiety or Irritability: 2=Irritable/Anxious Goose Flesh Skin: 0=Smooth Skin COWS Score: 14 S Progress Note (SOAP) Subjective: ANXIETY,TREMORS,STOMACH CRAMPS,BACK ACHE. Objective: 07/15/17 09:55 Vital Signs Temperature 96.4 F L 07/15/17 09:41 Pulse Rate 72 07/15/17 09:41 Respiratory Rate 20 07/15/17 09:41 Blood Pressure 109/76 07/15/17 09:41 O2 Sat by Pulse Oximetry (%) Laboratory Last Values Urine Color Dkyellow 07/14/17 17:49 Urine Appearance Cloudy 07/14/17 17:49 Urine pH 5.0 (5.0-8.0) 07/14/17 17:49 Ur Specific [place] 1.028 (1.001-1.035) 07/14/17 17:49 Urine Protein Negative (NEGATIVE) 07/14/17 17:49 Urine Glucose (UA) Negative (NEGATIVE) 07/14/17 17:49 Urine Ketones 1+ (NEGATIVE) H 07/14/17 17:49 Urine Blood Negative (NEGATIVE) 07/14/17 17:49 Urine Nitrite Negative (NEGATIVE) 07/14/17 17:49 Urine Bilirubin Negative (<2.0 mg/dL) 07/14/17 17:49 Urine Urobilinogen 2.0 mg/dL (0.2-1.0) 07/14/17 17:49 Ur Leukocyte Esterase Negative (NEGATIVE) 07/14/17 17:49 OTHER LABS PENDING Assessment: 07/15/17 09:55 WITHDRAWAL SX Plan: CONTINUE DETOX FLEXERIL 10 MG PO TID PRN FOR MUSCLE CRAMPS
[2017-07-15] MEDS ORDERED: CYCLOBENZAPRINE HCL 10 MG TABLET (FP) PO PRN (09:56)
[2017-07-15] MEDS ORDERED: METHADONE HCL 10 MG TABLET (FOR DETOX USE ONLY) PO SCH (10:00)
[2017-07-15 10:11] LABS: HEMATOCRIT 41.3 % (35.4-49); HEMOGLOBIN 13.7 GM/dL (11.7-16.9); MCH 28.1 pg (25.7-33.7); MCHC 33.3 g/dl (32.0-35.9); MEAN CELL VOLUME 84.4 fl (80-96); MEAN PLT VOLUME 8.1 fl (7.5-11.1); PLATELET COUNT 245 K/MM3 (134-434); RBC 4.89 M/mm3 (4.00-5.60); WHITE BLOOD COUNT 8.5 K/mm3 (4.0-10.0)
[2017-07-15] MEDS: NICOTINE 14 MG/24 HOURS TOPICAL PATCH TD SCH (10:21)
[2017-07-15] MEDS: PRENATAL VITAMINS W/ FOLIC ACID TABLET (FP) PO SCH (10:21)
[2017-07-15 11:13] LABS: CHLORIDE 102 mmol/L (98-107); POTASSIUM 3.9 mmol/L (3.5-5.1); SODIUM 137 mmol/L (136-145)
[2017-07-15 11:18] LABS: ALK PHOS 78 U/L (45-117); ANION GAP 6 (8-16); BILIRUBIN,TOTAL 0.6 mg/dL (0.2-1.0); BLOOD UREA NITROGEN 13 mg/dL (7-18); CO2 29 mmol/L (21-32); CREATININE 1.1 mg/dL (0.7-1.3); GLUCOSE,RANDOM 92 mg/dL (74-106); SGOT/AST 49 U/L (15-37); SGPT/ALT 24 U/L (12-78)
--- NOTE | 2017-07-15 13:35 | EKG ---
Test Reason : Blood Pressure : / mmHG Vent. Rate : 074 BPM Atrial Rate : 074 BPM P-R Int : 190 ms QRS Dur : 108 ms QT Int : 398 ms P-R-T Axes : 023 062 040 degrees QTc Int : 441 ms NORMAL SINUS RHYTHM NORMAL ECG WHEN COMPARED WITH ECG OF 03-JUL-2016 16:43, RI INTERVAL HAS DECREASED INCOMPLETE RIGHT BUNDLE BRANCH BLOCK IS NO LONGER PRESENT Confirmed by MD MIRANDA, DENISE ([id number]) on 07/15/2017 1:35:22 PM Referred By: Confirmed By:DENISE JEAN MD
[2017-07-15] MEDS: ZOLPIDEM TARTRATE 5 MG TABLET PO PRN (22:23)
[2017-07-15] MEDS: THIAMINE HCL 100 MG TABLET (FP) PO SCH (22:25)
[2017-07-16] MEDS: chlordiazePOXIDE HCL 25 MG CAPSULE PO SCH ×3 (05:09→17:32)
[2017-07-16] MEDS: METHADONE HCL 5 MG TABLET (FOR DETOX USE ONLY) PO SCH (10:43)
[2017-07-16] MEDS: PRENATAL VITAMINS W/ FOLIC ACID TABLET (FP) PO SCH (10:43)
[2017-07-16] MEDS: NICOTINE 14 MG/24 HOURS TOPICAL PATCH TD SCH (10:43)
--- NOTE | 2017-07-16 11:16 | PN ---
[facility] CIWA - CIWA Score Nausea/Vomitin-Mild Nausea/No Vomiting (DIARRHEA) Muscle Tremors: 4-Moderate,w/Arms Extend Anxiety: 4-Mod. Anxious/Guarded Agitation: 4-Moderately Restless Paroxysmal Sweats: 1-Minimal Palms Moist Orientation: 0-Oriented Tacttile Disturbances: 0-None Auditory Disturbances: 0-None Visual Disturbances: 0-None Headache: 0-None Present CIWA-Ar Total Score: 14 S COWS - Scale Resting Pulse: 1= [place] 81-100 Sweatin= Chills/Flushing Restless Observation: 3= Extraneous Movement Pupil Size: 0= Normal to Room Light Bone or Joint Aches: 4=Acute Joint/Muscle Pain Runny Nose/ Eye Tearin= Nasal Congestion GI Upset > 30mins: 2= Nausea/Diarrhea Tremor Observation of Outstretched Hands: 2= Slight Tremor Visible Yawning Observation: 0= None Anxiety or Irritability: 2=Irritable/Anxious Goose Flesh Skin: 0=Smooth Skin COWS Score: 16 [facility] Progress Note (SOAP) Subjective: ANXIETY,SWEATS,TREMORS,DIARRHEA. Objective: 07/16/17 11:15 Vital Signs Temperature 96.8 F L 07/16/17 10:04 Pulse Rate 81 07/16/17 10:04 Respiratory Rate 20 07/16/17 10:04 Blood Pressure 99/58 07/16/17 10:04 O2 Sat by Pulse Oximetry (%) Laboratory Tests 07/14/17 07/15/17 07/15/17 17:49 06:00 06:00 WBC 8.5 D RBC 4.89 Hgb 13.7 Hct 41.3 MCV 84.4 MCH 28.1 MCHC 33.3 RDW 14.0 D Plt Count 245 MPV 8.1 Sodium 137 Potassium 3.9 Chloride 102 Carbon Dioxide 29 Anion Gap 6 L BUN 13 D Creatinine 1.1 D Creat Clearance w eGFR > 60 Random Glucose 92 D Calcium 9.0 Total Bilirubin 0.6 D AST 49 H D ALT 24 Alkaline Phosphatase 78 Total Protein 7.0 Albumin 4.0 Urine Color Dkyellow Urine Appearance Cloudy Urine pH 5.0 Ur Specific [place] 1.028 Urine Protein Negative Urine Glucose (UA) Negative Urine Ketones 1+ H Urine Blood Negative Urine Nitrite Negative Urine Bilirubin Negative Urine Urobilinogen 2.0 Ur Leukocyte Esterase Negative RPR Titer 07/15/17 06:00 WBC RBC Hgb Hct MCV MCH MCHC RDW Plt Count MPV Sodium Potassium Chloride Carbon Dioxide Anion Gap BUN Creatinine Creat Clearance w eGFR Random Glucose Calcium Total Bilirubin AST ALT Alkaline Phosphatase Total Protein Albumin Urine Color Urine Appearance Urine pH Ur Specific [place] Urine Protein Urine Glucose (UA) Urine Ketones Urine Blood Urine Nitrite Urine Bilirubin Urine Urobilinogen Ur Leukocyte Esterase RPR Titer Nonreactive Assessment: 07/16/17 11:15 WITHDRAWAL SX Plan: CONTINUE DETOX IMODIUM PRN
[2017-07-16] MEDS: ZOLPIDEM TARTRATE 5 MG TABLET PO PRN (22:19)
[2017-07-16] MEDS: THIAMINE HCL 100 MG TABLET (FP) PO SCH (22:19)
[2017-07-16] MEDS: chlordiazePOXIDE 5 MG CAPSULE PO SCH (22:19)
[2017-07-17] MEDS: chlordiazePOXIDE 5 MG CAPSULE PO SCH ×3 (05:26→17:41)
[2017-07-17] MEDS ORDERED: ONDANSETRON *ODT* 4 MG TABLET SL PRN (09:12)
[2017-07-17] MEDS: PRENATAL VITAMINS W/ FOLIC ACID TABLET (FP) PO SCH (10:10)
[2017-07-17] MEDS: METHADONE HCL 5 MG TABLET (FOR DETOX USE ONLY) PO SCH (10:10)
[2017-07-17] MEDS: NICOTINE 14 MG/24 HOURS TOPICAL PATCH TD SCH (10:12)
--- NOTE | 2017-07-17 12:00 | PN ---
[facility] Progress Note (SOAP) Subjective: ANXIETY, SWEATS, IRRITABILITY,BACK ACHE,NAUSEA/VOMITING,FATIGUE, INTERMITTENT SLEEP. Objective: 07/17/17 11:59 Vital Signs Temperature 97.8 F 07/17/17 09:16 Pulse Rate 77 07/17/17 09:16 Respiratory Rate 20 07/17/17 09:16 Blood Pressure 97/55 07/17/17 09:16 O2 Sat by Pulse Oximetry (%) Laboratory Tests 07/14/17 07/15/17 07/15/17 17:49 06:00 06:00 WBC 8.5 D RBC 4.89 Hgb 13.7 Hct 41.3 MCV 84.4 MCH 28.1 MCHC 33.3 RDW 14.0 D Plt Count 245 MPV 8.1 Sodium 137 Potassium 3.9 Chloride 102 Carbon Dioxide 29 Anion Gap 6 L BUN 13 D Creatinine 1.1 D Creat Clearance w eGFR > 60 Random Glucose 92 D Calcium 9.0 Total Bilirubin 0.6 D AST 49 H D ALT 24 Alkaline Phosphatase 78 Total Protein 7.0 Albumin 4.0 Urine Color Dkyellow Urine Appearance Cloudy Urine pH 5.0 Ur Specific [place] 1.028 Urine Protein Negative Urine Glucose (UA) Negative Urine Ketones 1+ H Urine Blood Negative Urine Nitrite Negative Urine Bilirubin Negative Urine Urobilinogen 2.0 Ur Leukocyte Esterase Negative RPR Titer 07/15/17 06:00 WBC RBC Hgb Hct MCV MCH MCHC RDW Plt Count MPV Sodium Potassium Chloride Carbon Dioxide Anion Gap BUN Creatinine Creat Clearance w eGFR Random Glucose Calcium Total Bilirubin AST ALT Alkaline Phosphatase Total Protein Albumin Urine Color Urine Appearance Urine pH Ur Specific [place] Urine Protein Urine Glucose (UA) Urine Ketones Urine Blood Urine Nitrite Urine Bilirubin Urine Urobilinogen Ur Leukocyte Esterase RPR Titer Nonreactive Assessment: 07/17/17 11:59 WITHDRAWAL SX Plan: CONTINUE DETOX ZOFRAN DIRECTED
[2017-07-17] MEDS: ZOLPIDEM TARTRATE 5 MG TABLET PO PRN (21:59)
[2017-07-17] MEDS: chlordiazePOXIDE HCL 10 MG CAPSULE PO SCH (22:06)
[2017-07-17] MEDS: THIAMINE HCL 100 MG TABLET (FP) PO SCH (22:06)
[2017-07-18] MEDS: chlordiazePOXIDE HCL 10 MG CAPSULE PO SCH (05:15)
[2017-07-18 09:06] VITALS: BP 111/69; PULSE 85; TEMP 98.6
[2017-07-18] MEDS: NICOTINE 14 MG/24 HOURS TOPICAL PATCH TD SCH (09:49)
[2017-07-18] MEDS: PRENATAL VITAMINS W/ FOLIC ACID TABLET (FP) PO SCH (09:49)
[2017-07-18] MEDS ORDERED: METHADONE HCL 10 MG TABLET (FOR DETOX USE ONLY) PO SCH (10:00)
--- NOTE | 2017-07-18 10:26 | PN ---
[facility] Progress Note (SOAP) Subjective: ALERT O X 3. DETOX TOLERATED WELL. NAD. OOB AMBULATING WITH STEADY GAIT. PER PT'S COUNSELOR RUSTY WEAVER, PT NEEDS TO FOLLOW UP AT [facility] AND SUBSEQUENT [facility]IOR [facility]IVING PLACEMENT TODAY. Objective: 07/18/17 10:25 Vital Signs Temperature 98.6 F 07/18/17 09:05 Pulse Rate 85 07/18/17 09:05 Respiratory Rate 18 07/18/17 09:05 Blood Pressure 111/69 07/18/17 09:05 O2 Sat by Pulse Oximetry (%) Laboratory Tests 07/14/17 07/15/17 07/15/17 17:49 06:00 06:00 WBC 8.5 D RBC 4.89 Hgb 13.7 Hct 41.3 MCV 84.4 MCH 28.1 MCHC 33.3 RDW 14.0 D Plt Count 245 MPV 8.1 Sodium 137 Potassium 3.9 Chloride 102 Carbon Dioxide 29 Anion Gap 6 L BUN 13 D Creatinine 1.1 D Creat Clearance w eGFR > 60 Random Glucose 92 D Calcium 9.0 Total Bilirubin 0.6 D AST 49 H D ALT 24 Alkaline Phosphatase 78 Total Protein 7.0 Albumin 4.0 Urine Color Dkyellow Urine Appearance Cloudy Urine pH 5.0 Ur Specific [place] 1.028 Urine Protein Negative Urine Glucose (UA) Negative Urine Ketones 1+ H Urine Blood Negative Urine Nitrite Negative Urine Bilirubin Negative Urine Urobilinogen 2.0 Ur Leukocyte Esterase Negative RPR Titer 07/15/17 06:00 WBC RBC Hgb Hct MCV MCH MCHC RDW Plt Count MPV Sodium Potassium Chloride Carbon Dioxide Anion Gap BUN Creatinine Creat Clearance w eGFR Random Glucose Calcium Total Bilirubin AST ALT Alkaline Phosphatase Total Protein Albumin Urine Color Urine Appearance Urine pH Ur Specific [place] Urine Protein Urine Glucose (UA) Urine Ketones Urine Blood Urine Nitrite Urine Bilirubin Urine Urobilinogen Ur Leukocyte Esterase RPR Titer Nonreactive Assessment: 07/18/17 10:26 MEDICALLY STABLE Plan: D/C PT TODAY SO CAN FOLLOW UP WITH APPOINTMENT AT [facility]ENIOR LIVING.
--- NOTE | 2017-07-18 10:30 | DS ---
[facility] Detox Discharge Summary Admission Date: 07/14/17 Discharge Date: 07/18/17 - History Present History: Alcohol Dependence, Cocaine Dependence, Opioid Dependence Additional Comments: DETOXED PROCEEDED WELL. ALERT O X 3. NAD. PT D/C'D TODAY TO FOLLOW UP WITH DSS/ HOUSING([facility]). PT REMINDED TO FOLLOW UP WITH PRIMARY CARE AT [facility] NEEDED. Pertinent Past History: PLEASE SEE DX BELOW - Physical Exam Results Vital Signs: Vital Signs Temperature 98.6 F 07/18/17 09:05 Pulse Rate 85 07/18/17 09:05 Respiratory Rate 18 07/18/17 09:05 Blood Pressure 111/69 07/18/17 09:05 O2 Sat by Pulse Oximetry (%) Pertinent Admission Physical Exam Findings: WITHDRAWAL SX Laboratory Last Values WBC 8.5 K/mm3 (4.0-10.0) D 07/15/17 06:00 RBC 4.89 M/mm3 (4.00-5.60) 07/15/17 06:00 Hgb 13.7 GM/dL (11.7-16.9) 07/15/17 06:00 Hct 41.3 % (35.4-49) 07/15/17 06:00 MCV 84.4 fl (80-96) 07/15/17 06:00 MCH 28.1 pg (25.7-33.7) 07/15/17 06:00 MCHC 33.3 g/dl (32.0-35.9) 07/15/17 06:00 RDW 14.0 % (11.9-15.9) D 07/15/17 06:00 Plt Count 245 K/MM3 (134-434) 07/15/17 06:00 MPV 8.1 fl (7.5-11.1) 07/15/17 06:00 Sodium 137 mmol/L (136-145) 07/15/17 06:00 Potassium 3.9 mmol/L (3.5-5.1) 07/15/17 06:00 Chloride 102 mmol/L (98-107) 07/15/17 06:00 Carbon Dioxide 29 mmol/L (21-32) 07/15/17 06:00 Anion Gap 6 (8-16) L 07/15/17 06:00 BUN 13 mg/dL (7-18) D 07/15/17 06:00 Creatinine 1.1 mg/dL (0.7-1.3) D 07/15/17 06:00 Creat Clearance w eGFR > 60 (>60) 07/15/17 06:00 Random Glucose 92 mg/dL (74-106) D 07/15/17 06:00 Calcium 9.0 mg/dL (8.5-10.1) 07/15/17 06:00 Total Bilirubin 0.6 mg/dL (0.2-1.0) D 07/15/17 06:00 AST 49 U/L (15-37) H D 07/15/17 06:00 ALT 24 U/L (12-78) 07/15/17 06:00 Alkaline Phosphatase 78 U/L (45-117) 07/15/17 06:00 Total Protein 7.0 g/dl (6.4-8.2) 07/15/17 06:00 Albumin 4.0 g/dl (3.4-5.0) 07/15/17 06:00 Urine Color Dkyellow 07/14/17 17:49 Urine Appearance Cloudy 07/14/17 17:49 Urine pH 5.0 (5.0-8.0) 07/14/17 17:49 Ur Specific [place] 1.028 (1.001-1.035) 07/14/17 17:49 Urine Protein Negative (NEGATIVE) 07/14/17 17:49 Urine Glucose (UA) Negative (NEGATIVE) 07/14/17 17:49 Urine Ketones 1+ (NEGATIVE) H 07/14/17 17:49 Urine Blood Negative (NEGATIVE) 07/14/17 17:49 Urine Nitrite Negative (NEGATIVE) 07/14/17 17:49 Urine Bilirubin Negative (<2.0 mg/dL) 07/14/17 17:49 Urine Urobilinogen 2.0 mg/dL (0.2-1.0) 07/14/17 17:49 Ur Leukocyte Esterase Negative (NEGATIVE) 07/14/17 17:49 RPR Titer Nonreactive (NONREACTIVE) 07/15/17 06:00 - Treatment Hospital Course: Detox Protocol Followed, Detoxed Safely, Responded well, Discharged Condition Good - Medication Discharge Medications: Ambulatory Orders Albuterol Sulfate Inhaler - [Ventolin HFA Inhaler -] 2 inh PO Q4H PRN 07/03/16 - Diagnosis (1) Alcohol dependence with uncomplicated withdrawal Current Visit: Yes Status: Acute (2) Nicotine dependence Current Visit: Yes Status: Acute Qualifiers: Nicotine product type: cigarettes Substance use status: in withdrawal Qualified Code(s): F17.213 - Nicotine dependence, cigarettes, with withdrawal (3) Opioid dependence with withdrawal Current Visit: Yes Status: Acute (4) Asthma Current Visit: Yes Status: Chronic Qualifiers: Asthma severity: mild Asthma persistence: intermittent Asthma complication type: uncomplicated Qualified Code(s): J45.20 - Mild intermittent asthma, uncomplicated (5) Cocaine dependence, uncomplicated Current Visit: Yes Status: Acute (6) Weight loss Current Visit: Yes Status: Acute - AMA Did Patient Leave Against Medical Advice: No
[2017-07-19] MEDS ORDERED: METHADONE HCL 5 MG TABLET (FOR DETOX USE ONLY) PO SCH (06:00)
== END 2017-07-18 09:44 | disposition home or self-care (01) | DRG 773 ==
LOC: YASAS 09:18 → Y3N 14:55
PROVIDERS: ADMIT Internal Medicine; ATTEND Internal Medicine
PROC: HZ2ZZZZ Detoxification Services for Substance Abuse Treatment (ICD-10-PCS; principal; 2017-07-14)
DX: F11.23 Opioid dependence with withdrawal (principal); F10.230 Alcohol dependence with withdrawal, uncomplicated; F14.20 Cocaine dependence, uncomplicated; F17.213 Nicotine dependence, cigarettes, with withdrawal; J45.20 Mild intermittent asthma, uncomplicated; R63.4 Abnormal weight loss; Z68.25 Body mass index [BMI] 25.0-25.9, adult
CPT/HCPCS: 36415; 80053; 81003; 85027; 86593; 93005; 93010; Q0162

== ENCOUNTER 2017-10-28 11:40 | Inpatient (IN) | payer OTHER ==
[2017-10-28 15:30] VITALS: BMI 28.1
--- NOTE | 2017-10-28 19:05 | HP ---
COWS - Scale Resting Pulse: 0= OR 80 or Below Sweatin= Chills/Flushing Restless Observation: 1= Difficult to Sit Still Pupil Size: 1= Pupils >than Normal Bone or Joint Aches: 1= Mild Discomfort Runny Nose/ Eye Tearin= Runny Nose/Eyes GI Upset > 30mins: 2= Nausea/Diarrhea Tremor Observation: 2= Slight Tremor Visible Yawning Observation: 2= >3x During Session Anxiety or Irritability: 2=Irritable/Anxious Goose Flesh Skin: 0=Smooth Skin COWS Score: 14 CIWA Score - CIWA Score Nausea/Vomitin-No Nausea/No Vomiting Muscle Tremors: 2 Anxiety: 3 Agitation: 3 Paroxysmal Sweats: 3 Orientation: 0-Oriented Tacttile Disturbances: 0-None Auditory Disturbances: 0-None Visual Disturbances: 1-Very Mild Sensitivity Headache: 3-Moderate CIWA-Ar Total Score: 15 Admission ROS BHS - HPI Chief Complaint: alcohol and opiod withdrawal symptoms Allergies/Adverse Reactions: Allergies Allergy/AdvReac Type Severity Reaction Status Date / Time No Known Allergies Allergy Verified 10/28/17 17:17 History of Present Illness: 52 yo male with hx of nicotine, heroin and alcohol dependence is here seeking detox, this is one of multiple admissions. Last detox [facility] 07/14/17 -07/18/17. Reports hx of multiple overdose, with last episode 10/25/17. PMHX: asthma and anxiety. Denies suicidal / homicidal ideation or hx of suicide attempts in the past. Longest period 6 six years. Exam Limitations: No Limitations - Ebola screening Have you traveled outside of the country in the last 21 days: No Have you had contact with anyone from an Ebola affected area: No Have you been sick,other than usual withdrawal symptoms: No Do you have a fever: No - Review of Systems Constitutional: Diaphoresis, Changes in sleep EENT: reports: Dental Problems (poor dentition) Respiratory: reports: No Symptoms reported Cardiac: reports: No Symptoms Reported GI: reports: Diarrhea, Nausea, Abdominal cramping : reports: No Symptoms Reported Musculoskeletal: reports: Back Pain, Joint Pain Integumentary: reports: Sweating Neuro: reports: See HPI, Headache Endocrine: reports: Increased Thirst Hematology: reports: No Symptoms Reported Psychiatric: reports: Orientated x3, Anxious Other Systems: Reviewed and Negative Patient History - Patient Medical History Hx Anemia: No Hx Asthma: Yes Hx Chronic Obstructive Pulmonary Disease (COPD): No Hx Cancer: No Hx Cardiac Disorders: No Hx Congestive Heart Failure: No Hx Hypertension: No Hx Hypercholesterolemia: No Hx Pacemaker: No HX Cerebrovascular Accident: No Hx Seizures: No Hx Dementia: No Hx Diabetes: No Hx Gastrointestinal Disorders: No Hx Liver Disease: No Hx Genitourinary Disorders: No Hx Sexually Transmitted Disorders: No Hx Renal Disease (ESRD): No Hx Thyroid Disease: No Hx Human Immunodeficiency Virus (HIV): No Hx Hepatitis C: No Hx Depression: No Hx Suicide Attempt: No Hx Bipolar Disorder: No Hx Schizophrenia: No - Patient Surgical History Past Surgical History: Yes Hx Neurologic Surgery: No Hx Cataract Extraction: No Hx Cardiac Surgery: No Hx Lung Surgery: No Hx Breast Surgery: No Hx Breast Biopsy: No Hx Abdominal Surgery: No Hx Appendectomy: No Hx Cholecystectomy: No Hx Genitourinary Surgery: No Hx Section: No Hx Orthopedic Surgery: Yes (dislocation, right shoulder in 2013) Anesthesia Reaction: No - PPD History Previous Implant?: Yes Documented Results: Negative w/proof Implanted On Prior [facility] Admission?: Yes Date: 07/16/17 Results: 0 mm PPD to be Administered?: Yes - Smoking Cessation Smoking history: Current every day smoker Have you smoked in the past 12 months: Yes Aproximately how many cigarettes per day: 10 Cigars Per Day: 0 Hx Chewing Tobacco Use: No Initiated information on smoking cessation: Yes 'Breaking Loose' booklet given: 10/28/17 - Substance & Tx. History Hx Alcohol Use: Yes Hx Substance Use: Yes Substance Use Type: Alcohol, Heroin Hx Substance Use Treatment: Yes (ast detox [facility] 07/14/17 -07/18/17.) - Substances Abused Heroin Route: Inhalation Frequency: Daily Amount used: 6 bags Age of first use: 26 Date of Last Use: 10/27/17 Alcohol-beer Route: Oral Frequency: Daily Amount used: 2-6 pks. Age of first use: 13 Date of Last Use: 10/27/17 Family Disease History - Family Disease History Family Disease History: [place]: Father (), Mother (pancreatic) Admission Physical Exam BHS - Vital Signs Vital Signs: Vital Signs - 24 hr 10/28/17 15:28 Temperature 97.5 F L Pulse Rate 79 Respiratory 20 Rate Blood Pressure 151/92 - Physical General Appearance: Yes: No Apparent Distress, Moderate Distress, Sweating, Anxious HEENTM: Yes: EOMI, Hearing grossly Normal, Normal ENT Inspection, Normocephalic , Normal Voice, TRINI, Pharynx Normal, Tm's normal, Other (poor) Respiratory: Yes: Chest Non-Tender, Lungs Clear, Normal Breath Sounds, No Respiratory Distress, No Accessory Muscle Use Neck: Yes: Within Normal Limits Breast: Yes: Breast Exam Deferred Cardiology: Yes: Regular Rhythm, Regular Rate Abdominal: Yes: Normal Bowel Sounds Genitourinary: Yes: Within Normal Limits Back: Yes: Within Normal Limits Musculoskeletal: Yes: full range of Motion, Gait Steady, Pelvis Stable Extremities: Yes: Normal Capillary Refill, Normal Inspection, Normal Range of Motion Neurological: Yes: mold blower II-XII NML intact, Fully Oriented, Alert, Motor Strength 5/5, Depressed Affect Integumentary: Yes: Normal Color, Warm, Diaphoresis Lymphatic: Yes: Within Normal Limits - Diagnostic (1) Alcohol dependence with uncomplicated withdrawal Current Visit: Yes Status: Acute (2) Nicotine dependence Current Visit: Yes Status: Acute Qualifiers: Nicotine product type: cigarettes Substance use status: in withdrawal Qualified Code(s): F17.213 - Nicotine dependence, cigarettes, with withdrawal (3) Opioid dependence with withdrawal Current Visit: Yes Status: Acute (4) Asthma Current Visit: Yes Status: Chronic Qualifiers: Asthma severity: mild Asthma persistence: intermittent Asthma complication type: uncomplicated Qualified Code(s): J45.20 - Mild intermittent asthma, uncomplicated Cleared for Admission S - Detox or Rehab [facility] Level of Care: Medically Managed Detox Regimen/Protocol: Methadone/Librium S Breath Alcohol Content Breath Alcohol Content: 0 Urine Drug Screen - Results Drug Screen Negative: No Urine Drug Screen Results: OPI-Opiates
[2017-10-28] MEDS ORDERED: ALBUTEROL SO4 8 GM HFA INHALER IH PRN (19:07)
[2017-10-28] MEDS ORDERED: chlordiazePOXIDE HCL 25 MG CAPSULE PO ONE (19:10)
[2017-10-28] MEDS ORDERED: MAGNESIUM CITRATE 300 ML BOTTLE PO PRN (19:10)
[2017-10-28] MEDS ORDERED: guaiFENesin/D-METHORPHAN HB 10 ML UNIT-DOSE CUPS PO PRN (19:10)
[2017-10-28] MEDS ORDERED: chlordiazePOXIDE HCL 25 MG CAPSULE PO PRN (19:10)
[2017-10-28] MEDS ORDERED: MENTHOL/PHENOL 1 EACH UD MM PRN (19:10)
[2017-10-28] MEDS ORDERED: NICOTINE POLACRILEX 2 MG GUM BC PRN (19:10)
[2017-10-28] MEDS ORDERED: MAGNESIUM HYDROX 2400MG/30ML ORAL SUSPENSION 30 ML CUP PO PRN (19:10)
[2017-10-28] MEDS ORDERED: MAG HYDROX/AL HYDROX/SIMETH 30 ML UNIT-DOSE CUP PO PRN (19:10)
[2017-10-28] MEDS ORDERED: LOPERAMIDE HCL 2 MG CAPSULE PO PRN (19:10)
[2017-10-28] MEDS ORDERED: ACETAMINOPHEN 325 MG TABLET (FP) PO PRN (19:10)
[2017-10-28] MEDS ORDERED: P-EPHED 60MG/TRIPROLIDI 2.5MG TABLET PO PRN (19:10)
[2017-10-28] MEDS ORDERED: IBUPROFEN 400 MG TABLET (FP) PO PRN (19:10)
[2017-10-28] MEDS ORDERED: METHADONE HCL 10 MG TABLET (FOR DETOX USE ONLY) PO ONE ×2 (19:10→23:00)
[2017-10-28] MEDS ORDERED: MELATONIN 5 MG TABLETS PO PRN (22:00)
[2017-10-28] MEDS: THIAMINE HCL 100 MG TABLET (FP) PO SCH (22:41)
[2017-10-28] MEDS: chlordiazePOXIDE HCL 25 MG CAPSULE PO SCH (22:50)
[2017-10-29 02:54] LABS: URINE APPEARANCE CLEAR; URINE BILIRUBIN NEGATIVE (<2.0 mg/dL); URINE COLOR YELLOW; URINE GLUCOSE (UA) NEGATIVE (NEGATIVE); URINE KETONE NEGATIVE (NEGATIVE); URINE LEUK ESTERASE NEGATIVE (NEGATIVE); URINE NITRITE NEGATIVE (NEGATIVE); URINE PROTEIN NEGATIVE (NEGATIVE)
[2017-10-29] MEDS: chlordiazePOXIDE HCL 25 MG CAPSULE PO SCH ×4 (05:31→22:49)
--- NOTE | 2017-10-29 08:14 | CONSULT ---
[facility] Psychiatric Consult - Data Date of interview: 10/29/17 Admission source: [facility] Identifying data: This is 52 years old male, single father of one, homeless, unemployed, on DSS, with no psychiatric hospitalization history, with history of nicotine, heroin and alcohol dependence is here seeking detox. This is one of multiple admissions. Last detox [facility] 07/14/17 -07/18/17. Substance Abuse History: Smoking history: Current every day smoker. Have you smoked in the past 12 months: Yes. Aproximately how many cigarettes per day: 10. Cigars Per Day: 0. Hx Chewing Tobacco Use: No. Initiated information on smoking cessation: Yes. 'Breaking Loose' booklet given: 10/28/17. - Substance & Tx. History. Hx Alcohol Use: Yes. Hx Substance Use: Yes. Substance Use Type : Alcohol, Heroin. Hx Substance Use Treatment: Yes (ast detox [facility] 07/14/17 -.). - Substances Abused. Heroin. Route: Inhalation. Frequency: Daily. Amount used: 6 bags. Age of first use: 26. Date of Last Use: . Alcohol-beer. Route: Oral. Frequency: Daily. Amount used: 2-6 pks. Age of first use: 13. Date of Last Use: 10/27/17 Medical History: Asthma Psychiatric History: Ptient reports history of anxiety, depression and insomnia , reports taking prior to admission: Seroquel 50mg po qhs. As per computer carries Bipolar Disorder. Physical/Sexual Abuse/Trauma History: Denies Additional Comment: Seroquel 50mg po qhs Mental Status Exam - Mental Status Exam Alert and Oriented to: Person Cognitive Function: Fair Patient Appearance: Unkempt Mood: Sad Affect: Flat Patient Behavior: Sedated Speech Pattern: Delayed Voice Loudness: Mildly Soft/Quiet Thought Process: Goal Oriented Thought Disorder: Being Controlled Hallucinations: Denies Suicidal Ideation: Denies Homicidal Ideation: Denies Insight/Judgement: Fair Sleep: Difficulty falling asleep Appetite: Weight loss Muscle strength/Tone: Mild Hypotonicity Gait/Station: Shuffling Additional Comments: Seroquel 50mg po qhs Psychiatric Findings - Problem List ([place] 1, 2,3) (1) Alcohol dependence with uncomplicated withdrawal Current Visit: Yes Status: Acute (2) Nicotine dependence Current Visit: Yes Status: Acute Qualifiers: Nicotine product type: cigarettes Substance use status: in withdrawal Qualified Code(s): F17.213 - Nicotine dependence, cigarettes, with withdrawal (3) Opioid dependence with withdrawal Current Visit: Yes Status: Acute (4) Asthma Current Visit: Yes Status: Chronic Qualifiers: Asthma severity: mild Asthma persistence: intermittent Asthma complication type: uncomplicated Qualified Code(s): J45.20 - Mild intermittent asthma, uncomplicated (5) Alcohol dependence Current Visit: No Status: Active (6) Bipolar disorder Current Visit: No Status: Suspected (7) Cocaine dependence Current Visit: No Status: Active (8) Opioid dependence Current Visit: No Status: Active (9) Syncope Current Visit: No Status: Active (10) Cocaine dependence, uncomplicated Current Visit: No Status: Acute (11) Sedative, hypnotic or anxiolytic dependence with withdrawal, uncomplicated Current Visit: No Status: Acute (12) Weight loss Current Visit: No Status: Acute (13) Seizure disorder Current Visit: No Status: Suspected - Initial Treatment Plan Initial Treatment Plan: Seroquel 50mg po qhs
[2017-10-29] MEDS ORDERED: METHADONE HCL 10 MG TABLET (FOR DETOX USE ONLY) PO SCH (10:00)
--- NOTE | 2017-10-29 10:30 | EKG ---
Test Reason : Blood Pressure : / mmHG Vent. Rate : 065 BPM Atrial Rate : 065 BPM P-R Int : 206 ms QRS Dur : 108 ms QT Int : 388 ms P-R-T Axes : 053 027 032 degrees QTc Int : 403 ms NORMAL SINUS RHYTHM NORMAL ECG WHEN COMPARED WITH ECG OF 14-JUL-2017 15:46, NO SIGNIFICANT CHANGE WAS FOUND Confirmed by KRYSTEN MOLINA MD ([id number]) on 10/29/2017 10:29:37 AM Referred By: Confirmed By:KRYSTEN MOLINA MD
[2017-10-29] MEDS: PRENATAL VITAMINS W/ FOLIC ACID TABLET (FP) PO SCH (10:37)
[2017-10-29] MEDS: NICOTINE 21 MG/24 HOURS TOPICAL PATCH TD SCH (10:38)
[2017-10-29 10:48] LABS: HEMATOCRIT 44.3 % (35.4-49); HEMOGLOBIN 14.8 GM/dL (11.7-16.9); MCHC 33.5 g/dl (32.0-35.9); MEAN CELL VOLUME 83.5 fl (80-96); MEAN PLT VOLUME 7.1 fl (7.5-11.1); PLATELET COUNT 220 K/MM3 (134-434); RBC 5.31 M/mm3 (4.00-5.60); RDW 13.6 % (11.9-15.9); WHITE BLOOD COUNT 5.3 K/mm3 (4.0-10.0)
[2017-10-29 11:37] LABS: ALBUMIN 3.4 g/dl (3.4-5.0); ANION GAP 8 (8-16); BILIRUBIN,TOTAL 0.4 mg/dL (0.2-1.0); BLOOD UREA NITROGEN 13 mg/dL (7-18); CALCIUM 8.8 mg/dL (8.5-10.1); CHLORIDE 107 mmol/L (98-107); CO2 31 mmol/L (21-32); CREATININE 1.2 mg/dL (0.7-1.3); GLUCOSE,RANDOM 78 mg/dL (74-106); SGOT/AST 17 U/L (15-37); SGPT/ALT 21 U/L (12-78); SODIUM 146 mmol/L (136-145); TOT PROT 6.3 g/dl (6.4-8.2)
[2017-10-29 11:38] LABS: ALK PHOS 63 U/L (45-117)
--- NOTE | 2017-10-29 12:57 | PN ---
[facility] CIWA - CIWA Score Nausea/Vomitin Muscle Tremors: 3 Anxiety: 3 Agitation: 2 Paroxysmal Sweats: 1-Minimal Palms Moist Orientation: 0-Oriented Tacttile Disturbances: 1-Very Mild Itch/Numbness Auditory Disturbances: 1-Very Mild Visual Disturbances: 0-None Headache: 2-Mild CIWA-Ar Total Score: 16 BHS COWS - Scale Resting Pulse: 0= AR 80 or Below Sweatin= Chills/Flushing Restless Observation: 3= Extraneous Movement Pupil Size: 1= Pupils >than Normal Bone or Joint Aches: 2= Severe Diffuse Aches Runny Nose/ Eye Tearin= Runny Nose/Eyes GI Upset > 30mins: 2= Nausea/Diarrhea Tremor Observation of Outstretched Hands: 2= Slight Tremor Visible Yawning Observation: 1= 1-2x During Session Anxiety or Irritability: 2=Irritable/Anxious Goose Flesh Skin: 0=Smooth Skin COWS Score: 16 [facility] Progress Note (SOAP) Subjective: alert,irritable,anxious,interrupted sleep,pain in the body and back,tremor Objective: 10/29/17 12:55 Vital Signs Temperature 96.6 F L 10/29/17 09:29 Pulse Rate 77 10/29/17 09:29 Respiratory Rate 18 10/29/17 09:29 Blood Pressure 117/72 10/29/17 09:29 O2 Sat by Pulse Oximetry (%) ekg nsr,normal ecg qt/qtc 388/403 Laboratory Last Values WBC 5.3 K/mm3 (4.0-10.0) 10/29/17 07:30 RBC 5.31 M/mm3 (4.00-5.60) 10/29/17 07:30 Hgb 14.8 GM/dL (11.7-16.9) 10/29/17 07:30 Hct 44.3 % (35.4-49) 10/29/17 07:30 MCV 83.5 fl (80-96) 10/29/17 07:30 MCH 28.0 pg (25.7-33.7) 10/29/17 07:30 MCHC 33.5 g/dl (32.0-35.9) 10/29/17 07:30 RDW 13.6 % (11.9-15.9) 10/29/17 07:30 Plt Count 220 K/MM3 (134-434) 10/29/17 07:30 MPV 7.1 fl (7.5-11.1) L D 10/29/17 07:30 Sodium 146 mmol/L (136-145) H 10/29/17 07:30 Potassium 4.0 mmol/L (3.5-5.1) 10/29/17 07:30 Chloride 107 mmol/L (98-107) 10/29/17 07:30 Carbon Dioxide 31 mmol/L (21-32) 10/29/17 07:30 Anion Gap 8 (8-16) 10/29/17 07:30 BUN 13 mg/dL (7-18) 10/29/17 07:30 Creatinine 1.2 mg/dL (0.7-1.3) 10/29/17 07:30 Creat Clearance w eGFR > 60 (>60) 10/29/17 07:30 Random Glucose 78 mg/dL (74-106) 10/29/17 07:30 Calcium 8.8 mg/dL (8.5-10.1) 10/29/17 07:30 Total Bilirubin 0.4 mg/dL (0.2-1.0) 10/29/17 07:30 AST 17 U/L (15-37) D 10/29/17 07:30 ALT 21 U/L (12-78) 10/29/17 07:30 Alkaline Phosphatase 63 U/L (45-117) 10/29/17 07:30 Total Protein 6.3 g/dl (6.4-8.2) L 10/29/17 07:30 Albumin 3.4 g/dl (3.4-5.0) 10/29/17 07:30 Urine Color Yellow 10/28/17 22:30 Urine Appearance Clear 10/28/17 22:30 Urine pH 7.0 (5.0-8.0) D 10/28/17 22:30 Ur Specific [place] 1.023 (1.001-1.035) 10/28/17 22:30 Urine Protein Negative (NEGATIVE) 10/28/17 22:30 Urine Glucose (UA) Negative (NEGATIVE) 10/28/17 22:30 Urine Ketones Negative (NEGATIVE) 10/28/17 22:30 Urine Blood Negative (NEGATIVE) 10/28/17 22:30 Urine Nitrite Negative (NEGATIVE) 10/28/17 22:30 Urine Bilirubin Negative (<2.0 mg/dL) 10/28/17 22:30 Urine Urobilinogen 2.0 mg/dL (0.2-1.0) 10/28/17 22:30 Ur Leukocyte Esterase Negative (NEGATIVE) 10/28/17 22:30 10/29/17 12:57 rpr pending Assessment: 10/29/17 12:57 withdrawal symptom Plan: continue detox
[2017-10-29] MEDS: QUEtiapine FUMARATE 50 MG TABLET PO SCH (22:49)
[2017-10-29] MEDS: THIAMINE HCL 100 MG TABLET (FP) PO SCH (22:49)
[2017-10-30] MEDS: chlordiazePOXIDE HCL 25 MG CAPSULE PO SCH ×3 (06:00→17:30)
[2017-10-30] MEDS: NICOTINE 21 MG/24 HOURS TOPICAL PATCH TD SCH (10:16)
[2017-10-30] MEDS: PRENATAL VITAMINS W/ FOLIC ACID TABLET (FP) PO SCH (10:16)
[2017-10-30] MEDS: METHADONE HCL 5 MG TABLET (FOR DETOX USE ONLY) PO SCH (10:20)
--- NOTE | 2017-10-30 11:58 | PN ---
S CIWA - CIWA Score Nausea/Vomitin Muscle Tremors: 3 Anxiety: 2 Agitation: 2 Paroxysmal Sweats: 1-Minimal Palms Moist Orientation: 0-Oriented Tacttile Disturbances: 1-Very Mild Itch/Numbness Auditory Disturbances: 1-Very Mild Visual Disturbances: 0-None Headache: 2-Mild CIWA-Ar Total Score: 14 S Progress Note (SOAP) Subjective: alert,drowsy,interruped sleep,pain in the body Objective: 10/30/17 11:56 Vital Signs Temperature 97.7 F 10/30/17 10:33 Pulse Rate 73 10/30/17 10:33 Respiratory Rate 19 10/30/17 10:33 Blood Pressure 106/63 10/30/17 10:33 O2 Sat by Pulse Oximetry (%) Laboratory Last Values WBC 5.3 K/mm3 (4.0-10.0) 10/29/17 07:30 RBC 5.31 M/mm3 (4.00-5.60) 10/29/17 07:30 Hgb 14.8 GM/dL (11.7-16.9) 10/29/17 07:30 Hct 44.3 % (35.4-49) 10/29/17 07:30 MCV 83.5 fl (80-96) 10/29/17 07:30 MCH 28.0 pg (25.7-33.7) 10/29/17 07:30 MCHC 33.5 g/dl (32.0-35.9) 10/29/17 07:30 RDW 13.6 % (11.9-15.9) 10/29/17 07:30 Plt Count 220 K/MM3 (134-434) 10/29/17 07:30 MPV 7.1 fl (7.5-11.1) L D 10/29/17 07:30 Sodium 146 mmol/L (136-145) H 10/29/17 07:30 Potassium 4.0 mmol/L (3.5-5.1) 10/29/17 07:30 Chloride 107 mmol/L (98-107) 10/29/17 07:30 Carbon Dioxide 31 mmol/L (21-32) 10/29/17 07:30 Anion Gap 8 (8-16) 10/29/17 07:30 BUN 13 mg/dL (7-18) 10/29/17 07:30 Creatinine 1.2 mg/dL (0.7-1.3) 10/29/17 07:30 Creat Clearance w eGFR > 60 (>60) 10/29/17 07:30 Random Glucose 78 mg/dL (74-106) 10/29/17 07:30 Calcium 8.8 mg/dL (8.5-10.1) 10/29/17 07:30 Total Bilirubin 0.4 mg/dL (0.2-1.0) 10/29/17 07:30 AST 17 U/L (15-37) D 10/29/17 07:30 ALT 21 U/L (12-78) 10/29/17 07:30 Alkaline Phosphatase 63 U/L (45-117) 10/29/17 07:30 Ammonia 52.93 umol/L (11-32) H 10/30/17 08:35 Total Protein 6.3 g/dl (6.4-8.2) L 10/29/17 07:30 Albumin 3.4 g/dl (3.4-5.0) 10/29/17 07:30 Urine Color Yellow 10/28/17 22:30 Urine Appearance Clear 10/28/17 22:30 Urine pH 7.0 (5.0-8.0) D 10/28/17 22:30 Ur Specific [place] 1.023 (1.001-1.035) 10/28/17 22:30 Urine Protein Negative (NEGATIVE) 10/28/17 22:30 Urine Glucose (UA) Negative (NEGATIVE) 10/28/17 22:30 Urine Ketones Negative (NEGATIVE) 10/28/17 22:30 Urine Blood Negative (NEGATIVE) 10/28/17 22:30 Urine Nitrite Negative (NEGATIVE) 10/28/17 22:30 Urine Bilirubin Negative (<2.0 mg/dL) 10/28/17 22:30 Urine Urobilinogen 2.0 mg/dL (0.2-1.0) 10/28/17 22:30 Ur Leukocyte Esterase Negative (NEGATIVE) 10/28/17 22:30 RPR Titer Nonreactive (NONREACTIVE) 10/29/17 07:30 Assessment: 10/30/17 11:57 withdrawal symptom Plan: continue detox,lactulose 20 grams po tid,for ammonia level of 52.93 close monitoring
[2017-10-30] MEDS: LACTULOSE 20 GM/30 ML UDC (FOR ORAL USE ONLY) PO SCH ×2 (14:47→22:52)
[2017-10-30] MEDS: THIAMINE HCL 100 MG TABLET (FP) PO SCH (22:53)
[2017-10-30] MEDS: chlordiazePOXIDE 5 MG CAPSULE PO SCH (22:53)
[2017-10-30] MEDS: QUEtiapine FUMARATE 50 MG TABLET PO SCH (22:54)
[2017-10-31] MEDS: LACTULOSE 20 GM/30 ML UDC (FOR ORAL USE ONLY) PO SCH ×3 (05:29→22:11)
[2017-10-31] MEDS: chlordiazePOXIDE 5 MG CAPSULE PO SCH ×3 (06:52→17:18)
[2017-10-31] MEDS: METHADONE HCL 5 MG TABLET (FOR DETOX USE ONLY) PO SCH (11:02)
[2017-10-31] MEDS: NICOTINE 21 MG/24 HOURS TOPICAL PATCH TD SCH (11:02)
[2017-10-31] MEDS: PRENATAL VITAMINS W/ FOLIC ACID TABLET (FP) PO SCH (11:02)
--- NOTE | 2017-10-31 11:09 | PN ---
BHS Progress Note (SOAP) Subjective: alert,oriented x 3,pain in the body,interrupted sleep Objective: 10/31/17 11:08 Vital Signs Temperature 96.8 F L 10/31/17 09:20 Pulse Rate 70 10/31/17 09:20 Respiratory Rate 18 10/31/17 09:20 Blood Pressure 123/80 10/31/17 09:20 O2 Sat by Pulse Oximetry (%) Assessment: 10/31/17 11:08 withdrawal symptom Plan: continue detox,continue lactulose 20 grams (30cc) po tid for high ammonia level
--- NOTE | 2017-10-31 21:58 | PN ---
[facility] Progress Note Note: Called by nurse to see patient for recent sluggishness and disorientation. Speech began slow and normalized after a few minutes of conversation. CMP Sodium 146 mmol/L (136-145) H 10/29/17 07:30 Potassium 4.0 mmol/L (3.5-5.1) 10/29/17 07:30 Chloride 107 mmol/L (98-107) 10/29/17 07:30 Carbon Dioxide 31 mmol/L (21-32) 10/29/17 07:30 Anion Gap 8 (8-16) 10/29/17 07:30 BUN 13 mg/dL (7-18) 10/29/17 07:30 Creatinine 1.2 mg/dL (0.7-1.3) 10/29/17 07:30 Creat Clearance w eGFR > 60 (>60) 10/29/17 07:30 Random Glucose 78 mg/dL (74-106) 10/29/17 07:30 Calcium 8.8 mg/dL (8.5-10.1) 10/29/17 07:30 Total Bilirubin 0.4 mg/dL (0.2-1.0) 10/29/17 07:30 AST 17 U/L (15-37) D 10/29/17 07:30 ALT 21 U/L (12-78) 10/29/17 07:30 Alkaline Phosphatase 63 U/L (45-117) 10/29/17 07:30 Ammonia 52.93 umol/L (11-32) H 10/30/17 08:35 Total Protein 6.3 g/dl (6.4-8.2) L 10/29/17 07:30 Albumin 3.4 g/dl (3.4-5.0) 10/29/17 07:30 Vital Signs - 24 hr 10/30/17 10/31/17 10/31/17 22:39 00:30 03:30 Temperature 97.9 F Pulse Rate 75 Respiratory 18 18 16 Rate Blood Pressure 142/81 10/31/17 10/31/17 10/31/17 06:22 09:20 15:00 Temperature 97.3 F L 96.8 F L 98.1 F Pulse Rate 79 70 75 Respiratory 18 18 18 Rate Blood Pressure 115/78 123/80 123/64 10/31/17 17:50 Temperature 97.9 F Pulse Rate 79 Respiratory 16 Rate Blood Pressure 140/78 Lungs CTA. HR: 90/RR; B/P: 119/60. Neuro: Alert. Oriented to month and year and w/in 3 days of date. Thought was at [facility] for drug detox. PERRL. EOMI, BHG equal; BL foot push/lift equal; Gait steady. Reoriented to time and place. Hold next dose of Librium. Repeat serum ammonia in am. Hourly rounding and re-evaluate in am or as needed.
[2017-10-31] MEDS: QUEtiapine FUMARATE 50 MG TABLET PO SCH (22:07)
[2017-10-31] MEDS: THIAMINE HCL 100 MG TABLET (FP) PO SCH (22:08)
[2017-10-31] MEDS: chlordiazePOXIDE HCL 10 MG CAPSULE PO SCH (22:13)
[2017-11-01] MEDS: chlordiazePOXIDE HCL 10 MG CAPSULE PO SCH ×3 (06:21→17:42)
[2017-11-01] MEDS: LACTULOSE 20 GM/30 ML UDC (FOR ORAL USE ONLY) PO SCH ×3 (06:21→22:15)
[2017-11-01] MEDS ORDERED: METHADONE HCL 10 MG TABLET (FOR DETOX USE ONLY) PO SCH (10:00)
[2017-11-01] MEDS: NICOTINE 21 MG/24 HOURS TOPICAL PATCH TD SCH (10:59)
[2017-11-01] MEDS: PRENATAL VITAMINS W/ FOLIC ACID TABLET (FP) PO SCH (10:59)
[2017-11-01] MEDS: THIAMINE HCL 100 MG TABLET (FP) PO SCH (22:15)
[2017-11-01] MEDS: QUEtiapine FUMARATE 50 MG TABLET PO SCH (22:15)
--- NOTE | 2017-11-01 23:09 | PN ---
S Progress Note (SOAP) Subjective: Diarrhea sweats Objective: 11/01/17 23:08 A & O x 3 noted in bed, denies any complaints Vital Signs Temperature 97.9 F 11/01/17 22:20 Pulse Rate 90 11/01/17 22:20 Respiratory Rate 20 11/01/17 22:20 Blood Pressure 147/87 11/01/17 22:20 O2 Sat by Pulse Oximetry (%) Assessment: 11/01/17 23:08 withdrawal sx Hyperammonemia Plan: continue detox Increase hydration Repeat ammonia level in a.m
[2017-11-02] MEDS ORDERED: METHADONE HCL 5 MG TABLET (FOR DETOX USE ONLY) PO SCH (06:00)
[2017-11-02] MEDS: LACTULOSE 20 GM/30 ML UDC (FOR ORAL USE ONLY) PO SCH (06:00)
[2017-11-02 10:28] VITALS: BP 120/71; PULSE 82; TEMP 96.6
[2017-11-02] MEDS: NICOTINE 21 MG/24 HOURS TOPICAL PATCH TD SCH (10:46)
[2017-11-02] MEDS: PRENATAL VITAMINS W/ FOLIC ACID TABLET (FP) PO SCH (10:46)
--- NOTE | 2017-11-02 12:17 | PN ---
S Progress Note (SOAP) Subjective: Muscle aches, sleepiness and mild headache Objective: 11/02/17 12:15 Vital Signs 11/02/17 11/02/17 06:00 10:27 Temperature 97.3 F L 96.6 F L Pulse Rate 75 82 Respiratory 18 18 Rate Blood Pressure 111/78 120/71 Laboratory Last Values WBC 5.3 K/mm3 (4.0-10.0) 10/29/17 07:30 RBC 5.31 M/mm3 (4.00-5.60) 10/29/17 07:30 Hgb 14.8 GM/dL (11.7-16.9) 10/29/17 07:30 Hct 44.3 % (35.4-49) 10/29/17 07:30 MCV 83.5 fl (80-96) 10/29/17 07:30 MCH 28.0 pg (25.7-33.7) 10/29/17 07:30 MCHC 33.5 g/dl (32.0-35.9) 10/29/17 07:30 RDW 13.6 % (11.9-15.9) 10/29/17 07:30 Plt Count 220 K/MM3 (134-434) 10/29/17 07:30 MPV 7.1 fl (7.5-11.1) L D 10/29/17 07:30 Sodium 146 mmol/L (136-145) H 10/29/17 07:30 Potassium 4.0 mmol/L (3.5-5.1) 10/29/17 07:30 Chloride 107 mmol/L (98-107) 10/29/17 07:30 Carbon Dioxide 31 mmol/L (21-32) 10/29/17 07:30 Anion Gap 8 (8-16) 10/29/17 07:30 BUN 13 mg/dL (7-18) 10/29/17 07:30 Creatinine 1.2 mg/dL (0.7-1.3) 10/29/17 07:30 Creat Clearance w eGFR > 60 (>60) 10/29/17 07:30 Random Glucose 78 mg/dL (74-106) 10/29/17 07:30 Calcium 8.8 mg/dL (8.5-10.1) 10/29/17 07:30 Total Bilirubin 0.4 mg/dL (0.2-1.0) 10/29/17 07:30 AST 17 U/L (15-37) D 10/29/17 07:30 ALT 21 U/L (12-78) 10/29/17 07:30 Alkaline Phosphatase 63 U/L (45-117) 10/29/17 07:30 Ammonia 49.4 umol/L (11-32) H 11/02/17 08:30 Total Protein 6.3 g/dl (6.4-8.2) L 10/29/17 07:30 Albumin 3.4 g/dl (3.4-5.0) 10/29/17 07:30 Urine Color Yellow 10/28/17 22:30 Urine Appearance Clear 10/28/17 22:30 Urine pH 7.0 (5.0-8.0) D 10/28/17 22:30 Ur Specific [place] 1.023 (1.001-1.035) 10/28/17 22:30 Urine Protein Negative (NEGATIVE) 10/28/17 22:30 Urine Glucose (UA) Negative (NEGATIVE) 10/28/17 22:30 Urine Ketones Negative (NEGATIVE) 10/28/17 22:30 Urine Blood Negative (NEGATIVE) 10/28/17 22:30 Urine Nitrite Negative (NEGATIVE) 10/28/17 22:30 Urine Bilirubin Negative (<2.0 mg/dL) 10/28/17 22:30 Urine Urobilinogen 2.0 mg/dL (0.2-1.0) 10/28/17 22:30 Ur Leukocyte Esterase Negative (NEGATIVE) 10/28/17 22:30 RPR Titer Nonreactive (NONREACTIVE) 10/29/17 07:30 Labs noted, elevated ammonia level which is trending down Assessment: 11/02/17 12:15 Withdrawal sx Plan: Patient to transfer to rehab, monitor the ammonia level
--- NOTE | 2017-11-02 12:35 | DS ---
[facility] Detox Discharge Summary Admission Date: 10/28/17 Discharge Date: 11/02/17 - History Present History: Alcohol Dependence, Cannabis Dependence, Cocaine Dependence, Opioid Dependence - Physical Exam Results Vital Signs: Vital Signs Temperature 96.6 F L 11/02/17 10:27 Pulse Rate 82 11/02/17 10:27 Respiratory Rate 18 11/02/17 10:27 Blood Pressure 120/71 11/02/17 10:27 O2 Sat by Pulse Oximetry (%) Pertinent Admission Physical Exam Findings: Withdrawal sx Laboratory Last Values WBC 5.3 K/mm3 (4.0-10.0) 10/29/17 07:30 RBC 5.31 M/mm3 (4.00-5.60) 10/29/17 07:30 Hgb 14.8 GM/dL (11.7-16.9) 10/29/17 07:30 Hct 44.3 % (35.4-49) 10/29/17 07:30 MCV 83.5 fl (80-96) 10/29/17 07:30 MCH 28.0 pg (25.7-33.7) 10/29/17 07:30 MCHC 33.5 g/dl (32.0-35.9) 10/29/17 07:30 RDW 13.6 % (11.9-15.9) 10/29/17 07:30 Plt Count 220 K/MM3 (134-434) 10/29/17 07:30 MPV 7.1 fl (7.5-11.1) L D 10/29/17 07:30 Sodium 146 mmol/L (136-145) H 10/29/17 07:30 Potassium 4.0 mmol/L (3.5-5.1) 10/29/17 07:30 Chloride 107 mmol/L (98-107) 10/29/17 07:30 Carbon Dioxide 31 mmol/L (21-32) 10/29/17 07:30 Anion Gap 8 (8-16) 10/29/17 07:30 BUN 13 mg/dL (7-18) 10/29/17 07:30 Creatinine 1.2 mg/dL (0.7-1.3) 10/29/17 07:30 Creat Clearance w eGFR > 60 (>60) 10/29/17 07:30 Random Glucose 78 mg/dL (74-106) 10/29/17 07:30 Calcium 8.8 mg/dL (8.5-10.1) 10/29/17 07:30 Total Bilirubin 0.4 mg/dL (0.2-1.0) 10/29/17 07:30 AST 17 U/L (15-37) D 10/29/17 07:30 ALT 21 U/L (12-78) 10/29/17 07:30 Alkaline Phosphatase 63 U/L (45-117) 10/29/17 07:30 Ammonia 49.4 umol/L (11-32) H 11/02/17 08:30 Total Protein 6.3 g/dl (6.4-8.2) L 10/29/17 07:30 Albumin 3.4 g/dl (3.4-5.0) 10/29/17 07:30 Urine Color Yellow 10/28/17 22:30 Urine Appearance Clear 10/28/17 22:30 Urine pH 7.0 (5.0-8.0) D 10/28/17 22:30 Ur Specific [place] 1.023 (1.001-1.035) 10/28/17 22:30 Urine Protein Negative (NEGATIVE) 10/28/17 22:30 Urine Glucose (UA) Negative (NEGATIVE) 10/28/17 22:30 Urine Ketones Negative (NEGATIVE) 10/28/17 22:30 Urine Blood Negative (NEGATIVE) 10/28/17 22:30 Urine Nitrite Negative (NEGATIVE) 10/28/17 22:30 Urine Bilirubin Negative (<2.0 mg/dL) 10/28/17 22:30 Urine Urobilinogen 2.0 mg/dL (0.2-1.0) 10/28/17 22:30 Ur Leukocyte Esterase Negative (NEGATIVE) 10/28/17 22:30 RPR Titer Nonreactive (NONREACTIVE) 10/29/17 07:30 Labs noted - Treatment Hospital Course: Detox Protocol Followed, Detoxed Safely, Responded well, Discharged Condition Good, Rehab Referral Accepted Patient has Accepted a Rehab Referral to: [facility] - Medication Discharge Medications: Ambulatory Orders Albuterol Sulfate Inhaler - [Ventolin HFA Inhaler -] 2 inh PO Q4H PRN 07/03/16 Quetiapine Fumarate [Quetiapine Fumarate ER] 50 mg PO HS #30 tab.er.24h - Diagnosis (1) Alcohol dependence with uncomplicated withdrawal Current Visit: Yes Status: Acute (2) Nicotine dependence Current Visit: Yes Status: Acute Qualifiers: Nicotine product type: cigarettes Substance use status: in withdrawal Qualified Code(s): F17.213 - Nicotine dependence, cigarettes, with withdrawal (3) Opioid dependence with withdrawal Current Visit: Yes Status: Acute (4) Serum ammonia increased Current Visit: Yes Status: Acute (5) Asthma Current Visit: Yes Status: Chronic Qualifiers: Asthma severity: mild Asthma persistence: intermittent Asthma complication type: uncomplicated Qualified Code(s): J45.20 - Mild intermittent asthma, uncomplicated (6) Cocaine dependence, uncomplicated Current Visit: Yes Status: Chronic (7) Cocaine dependence Current Visit: No Status: Active (8) Sedative, hypnotic or anxiolytic dependence with withdrawal, uncomplicated Current Visit: No Status: Acute
== END 2017-11-02 12:35 | disposition other institution (70) | DRG 773 ==
LOC: YASAS 11:40 → Y6N 17:50
PROVIDERS: ADMIT Surgery; ATTEND Surgery
PROC: HZ2ZZZZ Detoxification Services for Substance Abuse Treatment (ICD-10-PCS; principal; 2017-10-28)
DX: F11.23 Opioid dependence with withdrawal (principal); F10.230 Alcohol dependence with withdrawal, uncomplicated; F13.230 Sedative, hypnotic or anxiolytic dependence with withdrawal, uncomplicated; F14.20 Cocaine dependence, uncomplicated; F17.213 Nicotine dependence, cigarettes, with withdrawal; F31.9 Bipolar disorder, unspecified; J45.20 Mild intermittent asthma, uncomplicated; E72.20 Disorder of urea cycle metabolism, unspecified; Z87.898 Personal history of other specified conditions
CPT/HCPCS: 36415; 80053; 81003; 82140; 85027; 86593; 93005; 93010

== ENCOUNTER 2017-12-16 04:06 | Emergency (ER) | payer OTHER ==
[2017-12-16 04:18] VITALS: PULSE 78; BMI 26.5
[2017-12-16] MEDS ORDERED: ASPIRIN 81 MG CHEWABLE TABLETS PO ONE (04:34)
--- NOTE | 2017-12-16 04:35 | PDOC ---
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 reports pain is worse with movement Past History - Past Medical History Allergies/Adverse Reactions: Allergies Allergy/AdvReac Type Severity Reaction Status Date / Time No Known Allergies Allergy Verified 12/16/17 04:15 Home Medications: Ambulatory Orders Albuterol Sulfate Inhaler - [Ventolin HFA Inhaler -] 2 inh PO Q4H PRN 07/03/16 Quetiapine Fumarate [Quetiapine Fumarate ER] 50 mg PO HS #30 tab.er.24h Ibuprofen 600 mg PO QID PRN #14 tablet 12/16/17 Anemia: No Asthma: Yes Cancer: No Cardiac Disorders: No CVA: No COPD: No CHF: No Dementia: No Diabetes: No GI Disorders: No Disorders: No HTN: No Hypercholesterolemia: No Kidney Stones: No Liver Disease: No Seizures: No Thyroid Disease: No - Surgical History Abdominal Surgery: No Appendectomy: No Cardiac Surgery: No Cholecystectomy: No Lung Surgery: No Neurologic Surgery: No Orthopedic Surgery: Yes (dislocation, right shoulder in 2013) - Reproductive History Testicular Surgery: No - Suicide/Smoking/Psychosocial Hx Smoking History: Never smoked Have you smoked in the past 12 months: No Number of Cigarettes Smoked Daily: 10 Cigars Per Day: 0 Information on smoking cessation initiated: No 'Breaking Loose' booklet given: 10/28/17 Hx Alcohol Use: No Drug/Substance Use Hx: No Substance Use Type: Alcohol (Started drinking alcohol at age 13, consumes 2x 6pk daily. Last drank on 10/27/17), Heroin (Started using heroin at age 26, consumes 6 bags daily. Last used on 10/27/17) Hx Substance Use Treatment: Yes (7 previous inpt detox & one inpt rehab @[facility]) *Physical Exam - Vital Signs Last Vital Signs Temp Pulse Resp BP Pulse Ox 97.8 F 78 20 130/84 100 12/16/17 04:16 12/16/17 04:16 12/16/17 04:16 12/16/17 04:16 12/16/17 04:16 - Physical Exam General Appearance: Yes: Appropriately Dressed Respiratory/Chest: positive: Chest Tender, Lungs Clear, Normal Breath Sounds Gastrointestinal/Abdominal: positive: Normal Bowel Sounds, Soft Musculoskeletal: positive: Normal Inspection Extremity: positive: Normal Capillary Refill, Normal Inspection, Normal Range of Motion Integumentary: positive: Normal Color, Dry, Warm Heart Score/ECG Review - History History: Slightly suspicious - Electrocardiogram EKG: Normal - Age Age: 45-65 - Risk Factors Based on the list above the patient has:: 1-2 risk factors - Troponin Troponin: </= normal limit - Score Heart Score - Total: 2 - ECG Intrepretation Rhythm: Regular Rhythm Comment:: 12/16/17 06:46 Sinus rhythm with 1st degree Av block ED Treatment Course - LABORATORY CBC & Chemistry Diagram: 12/16/17 05:50 12/16/17 05:50 - RADIOLOGY Chest X-Ray Result: No Infiltrates (official read pending) Medical Decision Making - Medical Decision Making 12/16/17 06:46 A: chest pain P: labs Pending chest xray )700: chest xray negative. official read pending, *DC/Admit/Observation/Transfer Diagnosis at time of Disposition: Costochondritis, acute Chest pain Qualifiers: Chest pain type: other chest pain Qualified Code(s): R07.89 - Other chest pain - Discharge Dispostion Disposition: HOME - Prescriptions Prescriptions: Ibuprofen 600 mg PO QID PRN #14 tablet PRN Reason: Moderate Pain - Referrals - Patient Instructions Printed Discharge Instructions: DI for Atypical Chest Pain Additional Instructions: take tylenol every 6 hours as needed for pain take ibuprofen every 6 hours as needed for pain follow up with your doctor as soon as possible. - Post Discharge Activity Forms/Work/School Notes: Back to Work
[2017-12-16] MEDS ORDERED: ASPIRIN 81 MG CHEWABLE TABLETS ONE (05:19)
[2017-12-16 06:04] LABS: BASO % 0.7 % (0-2.0); EOS % 1.2 % (0-4.5); HEMOGLOBIN 13.6 GM/dL (11.7-16.9); LYMPH % 33.3 % (8-40); MCH 27.8 pg (25.7-33.7); MCHC 33.2 g/dl (32.0-35.9); MEAN CELL VOLUME 83.9 fl (80-96); MEAN PLT VOLUME 6.5 fl (7.5-11.1); MONO % 17.5 % (3.8-10.2); NEUT % 47.3 % (42.8-82.8); PLATELET COUNT 324 K/MM3 (134-434); RBC 4.88 M/mm3 (4.00-5.60); RDW 13.8 % (11.9-15.9); WHITE BLOOD COUNT 5.8 K/mm3 (4.0-10.0)
[2017-12-16 06:16] LABS: INR 1.15 (0.83-1.09)
[2017-12-16 06:28] LABS: ALBUMIN 3.5 g/dl (3.4-5.0); ALK PHOS 76 U/L (45-117); ANION GAP 9 MMOL/L (8-16); BILIRUBIN,TOTAL 0.5 mg/dL (0.2-1); BLOOD UREA NITROGEN 15 mg/dL (7-18); CALCIUM 9.3 mg/dL (8.5-10.1); CHLORIDE 103 mmol/L (98-107); CO2 28 mmol/L (21-32); CREATININE 1.3 mg/dL (0.55-1.3); GLUCOSE,RANDOM 84 mg/dL (74-106); MAGNESIUM 1.9 mg/dL (1.8-2.4); POTASSIUM 3.7 mmol/L (3.5-5.1); SGOT/AST 19 U/L (15-37); SGPT/ALT 20 U/L (13-61); SODIUM 139 mmol/L (136-145); TOT PROT 6.7 g/dl (6.4-8.2)
[2017-12-16 07:18] VITALS: BP 128/78; TEMP 98
--- NOTE | 2017-12-16 10:50 | EKG ---
Test Reason : Blood Pressure : / mmHG Vent. Rate : 078 BPM Atrial Rate : 078 BPM P-R Int : 216 ms QRS Dur : 100 ms QT Int : 376 ms P-R-T Axes : 072 044 039 degrees QTc Int : 428 ms SINUS RHYTHM WITH 1ST DEGREE A-V BLOCK OTHERWISE NORMAL ECG Confirmed by MD MARYBETH, URVASHI ([id number]) on 12/16/2017 10:50:23 AM Referred By: Confirmed By:URVASHI RUEDA MD
== END 2017-12-16 07:18 | disposition home or self-care (01) ==
LOC: JER 04:06
DX: M94.0 Chondrocostal junction syndrome [Tietze] (principal); Z87.09 Personal history of other diseases of the respiratory system
CPT/HCPCS: 36415; 71046-TC-FY; 80053; 82550; 82553; 83735; 84484; 85025; 85610; 93005; 93010; 99282-25

== ENCOUNTER 2021-06-19 08:20 | Inpatient (IN) | payer OTHER ==
[2021-06-19] MEDS ORDERED: MAGNESIUM CITRATE 300 ML BOTTLE PO PRN (08:51)
[2021-06-19] MEDS ORDERED: LOPERAMIDE HCL 2 MG CAPSULE PO PRN (08:51)
[2021-06-19] MEDS ORDERED: chlordiazePOXIDE HCL 25 MG CAPSULE PO PRN (08:51)
[2021-06-19] MEDS ORDERED: MAG HYDROX/AL HYDROX/SIMETH 30 ML UNIT-DOSE CUP PO PRN (08:51)
[2021-06-19] MEDS ORDERED: ONDANSETRON *ODT* 4 MG TABLET SL PRN (08:51)
[2021-06-19] MEDS ORDERED: METHOCARBAMOL 500 MG TABLET PO PRN (08:51)
[2021-06-19] MEDS ORDERED: ACETAMINOPHEN 325 MG TABLET (FP) PO PRN ×2 (08:51)
[2021-06-19] MEDS ORDERED: IBUPROFEN 400 MG TABLET (FP) PO PRN (08:51)
[2021-06-19] MEDS ORDERED: cloNIDine HCL 0.1 MG TABLET PO PRN (08:51)
[2021-06-19] MEDS ORDERED: MAGNESIUM HYDROX 2400MG/30ML ORAL SUSPENSION 30 ML CUP PO PRN (08:51)
[2021-06-19] MEDS ORDERED: MENTHOL/PHENOL 1 EACH UD MM PRN (08:51)
[2021-06-19] MEDS ORDERED: NICOTINE 10 MG CARTRIDGE (INHALER) IH PRN (08:51)
[2021-06-19] MEDS ORDERED: BISMUTH SUBSALICYLATE 262 MG/15 ML BTL PO PRN (08:51)
[2021-06-19] MEDS ORDERED: methaDONE HCL 10 MG TABLET (FOR DETOX USE ONLY) PO ONE (08:51)
[2021-06-19 08:58] VITALS: BMI 27.8
[2021-06-19] MEDS: hydrOXYzine PAMOATE 25 MG CAPSULE (FP) PO SCH ×4 (10:54→22:42)
[2021-06-19] MEDS: PRENATAL VITAMINS W/ FOLIC ACID TABLET (FP) PO SCH (10:54)
[2021-06-19] MEDS: chlordiazePOXIDE HCL 25 MG CAPSULE PO SCH ×3 (10:57→22:42)
[2021-06-19] MEDS: NICOTINE 14 MG/24 HOURS TOPICAL PATCH TD SCH (10:58)
[2021-06-19 11:22] LABS: HEMOGLOBIN 12.7 GM/dL (11.7-16.9); MCH 28.1 pg (25.7-33.7); MCHC 33.6 g/dl (32.0-35.9); MEAN CELL VOLUME 83.8 fl (80-96); PLATELET COUNT 226 10^3/uL (134-434); RBC 4.53 M/mm3 (4.00-5.60); RDW 13.4 % (11.9-15.9); WHITE BLOOD COUNT 5.3 K/mm3 (4.0-10.0)
[2021-06-19 11:43] LABS: ALBUMIN 3.4 g/dl (3.4-5.0); BLOOD UREA NITROGEN 16.2 mg/dL (7-18); CALCIUM 8.7 mg/dL (8.5-10.1)
[2021-06-19 11:45] LABS: BILIRUBIN,TOTAL 0.3 mg/dL (0.2-1); CREATININE 1.3 mg/dL (0.55-1.3); TOT PROT 6.2 g/dl (6.4-8.2)
[2021-06-19] MEDS: THIAMINE HCL 100 MG TABLET (FP) PO SCH (22:42)
[2021-06-19] MEDS: MELATONIN 5 MG TABLETS PO SCH (22:42)
[2021-06-20] MEDS: hydrOXYzine PAMOATE 25 MG CAPSULE (FP) PO SCH ×5 (06:40→22:41)
[2021-06-20] MEDS: chlordiazePOXIDE HCL 25 MG CAPSULE PO SCH ×4 (06:40→22:41)
[2021-06-20] MEDS ORDERED: methaDONE HCL 10 MG TABLET (FOR DETOX USE ONLY) ONE (09:15)
[2021-06-20] MEDS: PRENATAL VITAMINS W/ FOLIC ACID TABLET (FP) PO SCH (11:07)
[2021-06-20] MEDS: NICOTINE 14 MG/24 HOURS TOPICAL PATCH TD SCH (11:08)
[2021-06-20] MEDS: THIAMINE HCL 100 MG TABLET (FP) PO SCH (22:41)
[2021-06-20] MEDS: MELATONIN 5 MG TABLETS PO SCH (22:41)
[2021-06-21] MEDS: chlordiazePOXIDE HCL 25 MG CAPSULE PO SCH ×2 (05:25→10:13)
[2021-06-21] MEDS: hydrOXYzine PAMOATE 25 MG CAPSULE (FP) PO SCH ×3 (05:26→13:47)
[2021-06-21] MEDS ORDERED: methaDONE HCL 10 MG TABLET (FOR DETOX USE ONLY) PO ONE (10:00)
[2021-06-21] MEDS: NICOTINE 14 MG/24 HOURS TOPICAL PATCH TD SCH (10:12)
[2021-06-21] MEDS: PRENATAL VITAMINS W/ FOLIC ACID TABLET (FP) PO SCH (10:13)
[2021-06-21 13:02] VITALS: BP 99/79; PULSE 74; TEMP 98.4
[2021-06-22] MEDS ORDERED: chlordiazePOXIDE HCL 10 MG CAPSULE PO PRN
[2021-06-22] MEDS ORDERED: chlordiazePOXIDE HCL 10 MG CAPSULE PO SCH (05:00)
[2021-06-23] MEDS ORDERED: chlordiazePOXIDE HCL 10 MG CAPSULE PO SCH (05:00)
[2021-06-23] MEDS ORDERED: methaDONE HCL 10 MG TABLET (FOR DETOX USE ONLY) PO ONE (10:00)
[2021-06-24] MEDS ORDERED: chlordiazePOXIDE HCL 10 MG CAPSULE PO ONE (05:00)
== END 2021-06-21 14:11 | disposition left against medical advice (07) | DRG 770 ==
LOC: YASAS 08:20 → Y6N 09:39
PROVIDERS: ADMIT Allergy & Immunology; ATTEND Allergy & Immunology
PROC: HZ2ZZZZ Detoxification Services for Substance Abuse Treatment (ICD-10-PCS; principal; 2021-06-19)
DX: F11.23 Opioid dependence with withdrawal (principal); F10.230 Alcohol dependence with withdrawal, uncomplicated; F14.10 Cocaine abuse, uncomplicated; F12.10 Cannabis abuse, uncomplicated; F17.210 Nicotine dependence, cigarettes, uncomplicated; G47.00 Insomnia, unspecified; J45.20 Mild intermittent asthma, uncomplicated
CPT/HCPCS: 36415; 80053; 85027; 86780; 87811; C9803-CS; U0003; U0005

== ENCOUNTER 2021-07-09 01:56 | Inpatient (IN) | payer OTHER ==
[2021-07-09 02:17] VITALS: BMI 34.7
[2021-07-09] MEDS ORDERED: BENZOCAINE/MENTHOL (CHLORASEPTIC ) LOZENGE MM PRN (02:58)
[2021-07-09] MEDS ORDERED: DICYCLOMINE HCL 10 MG CAPSULE PO PRN (02:58)
[2021-07-09] MEDS ORDERED: ACETAMINOPHEN 325 MG TABLET (FP) PO PRN ×2 (02:58)
[2021-07-09] MEDS ORDERED: MAG HYDROX/AL HYDROX/SIMETH 30 ML UNIT-DOSE CUP PO PRN (02:58)
[2021-07-09] MEDS ORDERED: BISMUTH SUBSALICYLATE 524 MG/30 ML PO PRN (02:58)
[2021-07-09] MEDS ORDERED: IBUPROFEN 400 MG TABLET (FP) PO PRN (02:58)
[2021-07-09] MEDS ORDERED: MAGNESIUM CITRATE 300 ML BOTTLE PO PRN (02:58)
[2021-07-09] MEDS ORDERED: NICOTINE POLACRILEX 2 MG GUM BUC PRN (02:58)
[2021-07-09] MEDS ORDERED: MAGNESIUM HYDROX 2400MG/30ML ORAL SUSPENSION 30 ML CUP PO PRN (02:58)
[2021-07-09] MEDS ORDERED: ONDANSETRON *ODT* 4 MG TABLET SL PRN (02:58)
[2021-07-09] MEDS ORDERED: LOPERAMIDE HCL 2 MG CAPSULE PO PRN (02:58)
[2021-07-09] MEDS: PRENATAL VITAMINS W/ FOLIC ACID TABLET (FP) PO SCH (12:30)
[2021-07-09] MEDS: NICOTINE 14 MG/24 HOURS TOPICAL PATCH TD SCH (12:30)
[2021-07-09] MEDS ORDERED: methaDONE HCL 10 MG TABLET (FOR DETOX USE ONLY) PO ONE (12:51)
[2021-07-09] MEDS ORDERED: cloNIDine HCL 0.1 MG TABLET PO PRN (12:51)
[2021-07-09] MEDS: METHOCARBAMOL 500 MG TABLET PO PRN (14:32)
[2021-07-09] MEDS: diazePAM 5 MG TABLET PO PRN ×2 (14:36→22:24)
[2021-07-09] MEDS: THIAMINE HCL 100 MG TABLET (FP) PO SCH (22:23)
[2021-07-09] MEDS: MELATONIN 5 MG TABLETS PO SCH (22:23)
[2021-07-10] MEDS ORDERED: ALBUTEROL SO4 HFA INHALER IH PRN (07:55)
[2021-07-10] MEDS ORDERED: methaDONE HCL 10 MG TABLET (FOR DETOX USE ONLY) ONE (09:18)
[2021-07-10] MEDS: NICOTINE 14 MG/24 HOURS TOPICAL PATCH TD SCH (10:43)
[2021-07-10] MEDS: PRENATAL VITAMINS W/ FOLIC ACID TABLET (FP) PO SCH (10:44)
[2021-07-10] MEDS: diazePAM 5 MG TABLET PO PRN ×2 (10:44→22:41)
[2021-07-10 11:51] LABS: HEMATOCRIT 40.7 % (35.4-49); HEMOGLOBIN 13.5 GM/dL (11.7-16.9); MCH 28.3 pg (25.7-33.7); MCHC 33.3 g/dl (32.0-35.9); MEAN CELL VOLUME 85.1 fl (80-96); MEAN PLT VOLUME 7.3 fl (7.5-11.1); PLATELET COUNT 252 10^3/uL (134-434); RBC 4.78 M/mm3 (4.00-5.60); RDW 14.2 % (11.9-15.9); WHITE BLOOD COUNT 4.7 K/mm3 (4.0-10.0)
[2021-07-10 12:04] LABS: ALBUMIN 4.2 g/dl (3.4-5.0); BLOOD UREA NITROGEN 12.7 mg/dL (7-18)
[2021-07-10 12:05] LABS: BILIRUBIN,TOTAL 0.4 mg/dL (0.2-1); CREATININE 1.4 mg/dL (0.55-1.3); TOT PROT 7.4 g/dl (6.4-8.2)
[2021-07-10 12:06] LABS: CALCIUM 9.4 mg/dL (8.5-10.1)
[2021-07-10] MEDS: METHOCARBAMOL 500 MG TABLET PO PRN (22:40)
[2021-07-10] MEDS: THIAMINE HCL 100 MG TABLET (FP) PO SCH (22:40)
[2021-07-10] MEDS: MELATONIN 5 MG TABLETS PO SCH (22:40)
[2021-07-11] MEDS ORDERED: methaDONE HCL 10 MG TABLET (FOR DETOX USE ONLY) PO ONE (10:00)
[2021-07-11] MEDS: PRENATAL VITAMINS W/ FOLIC ACID TABLET (FP) PO SCH (10:24)
[2021-07-11] MEDS: diazePAM 5 MG TABLET PO PRN (10:24)
[2021-07-11] MEDS: NICOTINE 14 MG/24 HOURS TOPICAL PATCH TD SCH (10:25)
[2021-07-11 13:08] VITALS: BP 116/81; PULSE 80; TEMP 96.9
[2021-07-11 14:08] LABS: SARS-CoV-2 NAA Not Detected (Not Detected)
[2021-07-13] MEDS ORDERED: methaDONE HCL 10 MG TABLET (FOR DETOX USE ONLY) PO ONE (10:00)
== END 2021-07-11 16:21 | disposition left against medical advice (07) | DRG 770 ==
LOC: YASAS 01:56 → Y3N 03:08
PROVIDERS: ADMIT Allergy & Immunology; ATTEND Allergy & Immunology
PROC: HZ2ZZZZ Detoxification Services for Substance Abuse Treatment (ICD-10-PCS; principal; 2021-07-06)
DX: F11.23 Opioid dependence with withdrawal (principal); F10.230 Alcohol dependence with withdrawal, uncomplicated; F14.20 Cocaine dependence, uncomplicated; F13.20 Sedative, hypnotic or anxiolytic dependence, uncomplicated; F17.210 Nicotine dependence, cigarettes, uncomplicated; F32.A Depression, unspecified; J45.20 Mild intermittent asthma, uncomplicated; R56.9 Unspecified convulsions
CPT/HCPCS: 36415; 80053; 85027; 86780; 87811; 93005; 93010; C9803-CS; U0003; U0005

== ENCOUNTER 2021-07-31 23:51 | Inpatient (IN) | payer OTHER ==
[2021-08-01] MEDS ORDERED: MAGNESIUM HYDROX 2400MG/30ML ORAL SUSPENSION 30 ML CUP PO PRN (00:18)
[2021-08-01] MEDS ORDERED: ACETAMINOPHEN 325 MG TABLET (FP) PO PRN ×2 (00:18)
[2021-08-01] MEDS ORDERED: METHOCARBAMOL 500 MG TABLET PO PRN (00:18)
[2021-08-01] MEDS ORDERED: LOPERAMIDE HCL 2 MG CAPSULE PO PRN (00:18)
[2021-08-01] MEDS ORDERED: P-EPHED 60MG/TRIPROLIDI 2.5MG TABLET PO PRN (00:18)
[2021-08-01] MEDS ORDERED: NICOTINE POLACRILEX 2 MG GUM BUC PRN (00:18)
[2021-08-01] MEDS ORDERED: IBUPROFEN 400 MG TABLET (FP) PO PRN (00:18)
[2021-08-01] MEDS ORDERED: MAG HYDROX/AL HYDROX/SIMETH 30 ML UNIT-DOSE CUP PO PRN (00:18)
[2021-08-01] MEDS ORDERED: MAGNESIUM CITRATE 300 ML BOTTLE PO PRN (00:18)
[2021-08-01] MEDS ORDERED: guaiFENesin 200 MG/10 ML 10 ML UNIT-DOSE CUPS PO PRN (00:18)
[2021-08-01] MEDS ORDERED: BENZOCAINE/MENTHOL (CHLORASEPTIC ) LOZENGE MM PRN (00:18)
[2021-08-01] MEDS ORDERED: ONDANSETRON *ODT* 4 MG TABLET SL PRN (00:18)
[2021-08-01] MEDS ORDERED: DICYCLOMINE HCL 10 MG CAPSULE PO PRN (00:18)
[2021-08-01] MEDS ORDERED: BISMUTH SUBSALICYLATE 524 MG/30 ML PO PRN (00:18)
[2021-08-01 00:50] VITALS: BMI 26.4
[2021-08-01] MEDS: hydrOXYzine PAMOATE 25 MG CAPSULE (FP) PO PRN ×2 (03:09→18:37)
[2021-08-01] MEDS: NICOTINE 21 MG/24 HOURS TOPICAL PATCH TD SCH (11:00)
[2021-08-01] MEDS: PRENATAL VITAMINS W/ FOLIC ACID TABLET (FP) PO SCH (11:00)
[2021-08-01] MEDS ORDERED: THIAMINE HCL 100 MG TABLET (FP) PO SCH (22:00)
[2021-08-01] MEDS ORDERED: MELATONIN 5 MG TABLETS PO SCH ×2 (22:00)
[2021-08-02 06:14] VITALS: BP 126/80; PULSE 58; TEMP 97.5
[2021-08-02] MEDS: PRENATAL VITAMINS W/ FOLIC ACID TABLET (FP) PO SCH (11:04)
[2021-08-02] MEDS: NICOTINE 21 MG/24 HOURS TOPICAL PATCH TD SCH (11:04)
[2021-08-02 13:56] LABS: HEMATOCRIT 39.7 % (35.4-49); HEMOGLOBIN 12.9 GM/dL (11.7-16.9); MCH 27.5 pg (25.7-33.7); MCHC 32.6 g/dl (32.0-35.9); MEAN CELL VOLUME 84.4 fl (80-96); MEAN PLT VOLUME 7.2 fl (7.5-11.1); PLATELET COUNT 265 10^3/uL (134-434); RDW 13.8 % (11.9-15.9); WHITE BLOOD COUNT 4.2 K/mm3 (4.0-10.0)
[2021-08-02 14:34] LABS: CALCIUM 9.3 mg/dL (8.5-10.1)
[2021-08-02 14:35] LABS: ALBUMIN 3.1 g/dl (3.4-5.0); BLOOD UREA NITROGEN 13.7 mg/dL (7-18)
[2021-08-02 14:38] LABS: CREATININE 1.2 mg/dL (0.55-1.3)
[2021-08-02 14:40] LABS: TOT PROT 6.1 g/dl (6.4-8.2)
[2021-08-02 14:54] LABS: BILIRUBIN,TOTAL 0.4 mg/dL (0.2-1)
[2021-08-04 00:11] LABS: SARS-CoV-2 NAA Not Detected (Not Detected)
== END 2021-08-02 12:58 | disposition home or self-care (01) | DRG 773 ==
LOC: YASAS 23:51 → Y6N 08-01 02:00
PROVIDERS: ADMIT Allergy & Immunology; ATTEND Surgery
PROC: HZ2ZZZZ Detoxification Services for Substance Abuse Treatment (ICD-10-PCS; principal; 2021-08-01)
DX: F11.23 Opioid dependence with withdrawal (principal); F10.230 Alcohol dependence with withdrawal, uncomplicated; F14.20 Cocaine dependence, uncomplicated; F16.10 Hallucinogen abuse, uncomplicated; F17.210 Nicotine dependence, cigarettes, uncomplicated; F19.282 Other psychoactive substance dependence with psychoactive substance-induced sleep disorder; F19.24 Other psychoactive substance dependence with psychoactive substance-induced mood disorder; J45.909 Unspecified asthma, uncomplicated; Z56.0 Unemployment, unspecified; Z59.00 Homelessness unspecified
CPT/HCPCS: 36415; 80053; 85027; 86780; C9803-CS; U0003; U0005

== ENCOUNTER 2021-10-02 06:18 | Inpatient (IN) | payer OTHER ==
[2021-10-02 07:32] VITALS: BMI 27.2
[2021-10-02] MEDS ORDERED: BISMUTH SUBSALICYLATE 262 MG/15 ML BTL PO PRN (11:41)
[2021-10-02] MEDS ORDERED: IBUPROFEN 600 MG TABLET (FP) PO PRN (11:41)
[2021-10-02] MEDS ORDERED: ACETAMINOPHEN 325 MG TABLET (FP) PO PRN ×2 (11:41)
[2021-10-02] MEDS ORDERED: MAGNESIUM HYDROX 2400MG/30ML ORAL SUSPENSION 30 ML CUP PO PRN (11:41)
[2021-10-02] MEDS ORDERED: NICOTINE 10 MG CARTRIDGE (INHALER) IH PRN (11:41)
[2021-10-02] MEDS ORDERED: LOPERAMIDE HCL 2 MG CAPSULE PO PRN (11:41)
[2021-10-02] MEDS ORDERED: METHOCARBAMOL 500 MG TABLET PO PRN (11:41)
[2021-10-02] MEDS ORDERED: cloNIDine HCL 0.1 MG TABLET PO PRN (11:41)
[2021-10-02] MEDS ORDERED: DICYCLOMINE HCL 10 MG CAPSULE PO PRN (11:41)
[2021-10-02] MEDS ORDERED: MAGNESIUM CITRATE 300 ML BOTTLE PO PRN (11:41)
[2021-10-02] MEDS ORDERED: IBUPROFEN 400 MG TABLET (FP) PO PRN (11:41)
[2021-10-02] MEDS ORDERED: BENZOCAINE/MENTHOL (CHLORASEPTIC ) LOZENGE MM PRN (11:41)
[2021-10-02] MEDS ORDERED: MAG HYDROX/AL HYDROX/SIMETH 30 ML UNIT-DOSE CUP PO PRN (11:41)
[2021-10-02] MEDS ORDERED: methaDONE HCL 10 MG TABLET (FOR DETOX USE ONLY) PO ONE (11:41)
[2021-10-02] MEDS ORDERED: ONDANSETRON *ODT* 4 MG TABLET SL PRN (11:41)
[2021-10-02] MEDS ORDERED: ALBUTEROL SO4 HFA INHALER IH PRN (12:09)
[2021-10-02] MEDS ORDERED: NALOXONE HCL (KLOXXADO) 8 MG SPRAY NS PRN (12:09)
[2021-10-02] MEDS: PRENATAL VITAMINS W/ FOLIC ACID TABLET (FP) PO SCH (14:02)
[2021-10-02] MEDS: NICOTINE 7 MG/24 HOURS TOPICAL PATCH TD SCH (14:02)
[2021-10-02] MEDS: hydrOXYzine PAMOATE 25 MG CAPSULE (FP) PO SCH ×3 (14:02→23:21)
[2021-10-02] MEDS: MELATONIN 5 MG TABLETS PO SCH (23:20)
[2021-10-02] MEDS: THIAMINE HCL 100 MG TABLET (FP) PO SCH (23:21)
[2021-10-03] MEDS: hydrOXYzine PAMOATE 25 MG CAPSULE (FP) PO SCH ×5 (07:46→22:54)
[2021-10-03] MEDS ORDERED: methaDONE HCL 10 MG TABLET (FOR DETOX USE ONLY) ONE (09:24)
[2021-10-03] MEDS: NICOTINE 7 MG/24 HOURS TOPICAL PATCH TD SCH (10:33)
[2021-10-03] MEDS: PRENATAL VITAMINS W/ FOLIC ACID TABLET (FP) PO SCH (10:33)
[2021-10-03 11:11] LABS: HEMATOCRIT 38.9 % (35.4-49); MCH 27.8 pg (25.7-33.7); MCHC 33.4 g/dl (32.0-35.9); MEAN CELL VOLUME 83.3 fl (80-96); MEAN PLT VOLUME 7.2 fl (7.5-11.1); PLATELET COUNT 268 10^3/uL (134-434); RBC 4.67 M/mm3 (4.00-5.60); RDW 13.4 % (11.9-15.9); WHITE BLOOD COUNT 3.8 K/mm3 (4.0-10.0)
[2021-10-03 12:58] LABS: ALBUMIN 3.3 g/dl (3.4-5.0)
[2021-10-03 13:01] LABS: BLOOD UREA NITROGEN 12.8 mg/dL (7-18); CALCIUM 8.8 mg/dL (8.5-10.1)
[2021-10-03 13:04] LABS: CREATININE 1.1 mg/dL (0.55-1.3)
[2021-10-03 13:05] LABS: TOT PROT 6.1 g/dl (6.4-8.2)
[2021-10-03 13:07] LABS: BILIRUBIN,TOTAL 0.5 mg/dL (0.2-1)
[2021-10-03] MEDS: THIAMINE HCL 100 MG TABLET (FP) PO SCH (22:54)
[2021-10-03] MEDS: MELATONIN 5 MG TABLETS PO SCH (22:54)
[2021-10-04] MEDS: hydrOXYzine PAMOATE 25 MG CAPSULE (FP) PO SCH ×2 (07:17→10:25)
[2021-10-04 08:53] VITALS: BP 119/79; PULSE 59; TEMP 97.3
[2021-10-04] MEDS ORDERED: methaDONE HCL 10 MG TABLET (FOR DETOX USE ONLY) PO ONE (10:00)
[2021-10-04] MEDS: PRENATAL VITAMINS W/ FOLIC ACID TABLET (FP) PO SCH (10:25)
[2021-10-04] MEDS: NICOTINE 7 MG/24 HOURS TOPICAL PATCH TD SCH (10:25)
[2021-10-06] MEDS ORDERED: methaDONE HCL 10 MG TABLET (FOR DETOX USE ONLY) PO ONE (10:00)
== END 2021-10-04 11:12 | disposition left against medical advice (07) | DRG 770 ==
LOC: YASAS 06:18 → Y3N 12:17
PROVIDERS: ADMIT Allergy & Immunology; ATTEND Surgery
PROC: HZ2ZZZZ Detoxification Services for Substance Abuse Treatment (ICD-10-PCS; principal; 2021-10-02)
DX: F11.23 Opioid dependence with withdrawal (principal); F14.20 Cocaine dependence, uncomplicated; F16.20 Hallucinogen dependence, uncomplicated; F17.210 Nicotine dependence, cigarettes, uncomplicated; J45.20 Mild intermittent asthma, uncomplicated
CPT/HCPCS: 36415; 80053; 85027; 86780; C9803-CS; J0735; U0003; U0005

== ENCOUNTER 2022-03-15 08:16 | Inpatient (IN) | payer OTHER ==
[2022-03-15 08:27] VITALS: BMI 27.2
[2022-03-15] MEDS ORDERED: METHOCARBAMOL 500 MG TABLET PO PRN (09:03)
[2022-03-15] MEDS ORDERED: POLYETHYLENE GLYCOL (HEALTHYLAX) 3350 17 GM PACKET PO PRN (09:03)
[2022-03-15] MEDS ORDERED: MAGNESIUM HYDROX 2400MG/30ML ORAL SUSPENSION 30 ML CUP PO PRN (09:03)
[2022-03-15] MEDS ORDERED: BISMUTH SUBSALICYLATE 262 MG/15 ML BTL PO PRN (09:03)
[2022-03-15] MEDS ORDERED: LOPERAMIDE HCL 2 MG CAPSULE PO PRN (09:03)
[2022-03-15] MEDS ORDERED: DICYCLOMINE HCL 10 MG CAPSULE PO PRN (09:03)
[2022-03-15] MEDS ORDERED: MAG HYDROX/AL HYDROX/SIMETH 30 ML UNIT-DOSE CUP PO PRN (09:03)
[2022-03-15] MEDS ORDERED: BENZOCAINE/MENTHOL (CHLORASEPTIC ) LOZENGE MM PRN (09:03)
[2022-03-15] MEDS ORDERED: NICOTINE 10 MG CARTRIDGE (INHALER) IH PRN (09:03)
[2022-03-15] MEDS ORDERED: ACETAMINOPHEN 325 MG TABLET (FP) PO PRN ×2 (09:03)
[2022-03-15] MEDS ORDERED: ONDANSETRON *ODT* 4 MG TABLET SL PRN (09:03)
[2022-03-15] MEDS ORDERED: NALOXONE HCL (KLOXXADO) 8 MG SPRAY NS PRN (09:03)
[2022-03-15] MEDS ORDERED: hydrOXYzine PAMOATE 25 MG CAPSULE (FP) PO PRN (09:03)
[2022-03-15] MEDS ORDERED: IBUPROFEN 600 MG TABLET (FP) PO PRN (09:03)
[2022-03-15] MEDS ORDERED: IBUPROFEN 400 MG TABLET (FP) PO PRN (09:03)
[2022-03-15] MEDS ORDERED: ALBUTEROL SO4 HFA INHALER IH PRN (09:07)
[2022-03-15] MEDS ORDERED: cloNIDine HCL 0.1 MG TABLET PO PRN (09:10)
[2022-03-15] MEDS ORDERED: methaDONE HCL 10 MG TABLET (FOR DETOX USE ONLY) PO ONE (09:10)
[2022-03-15] MEDS ORDERED: methaDONE HCL 10 MG TABLET (FOR DETOX USE ONLY) ONE (09:58)
[2022-03-15] MEDS: PRENATAL VITAMINS W/ FOLIC ACID TABLET (FP) PO SCH (10:03)
[2022-03-15 11:40] LABS: HEMATOCRIT 36.2 % (35.4-49); HEMOGLOBIN 11.7 GM/dL (11.7-16.9); MCH 27.1 pg (25.7-33.7); MCHC 32.2 g/dl (32.0-35.9); MEAN CELL VOLUME 84.2 fl (80-96); MEAN PLT VOLUME 7.1 fl (7.5-11.1); PLATELET COUNT 242 10^3/uL (134-434); RDW 13.6 % (11.9-15.9); WHITE BLOOD COUNT 5.8 K/mm3 (4.0-10.0)
[2022-03-15 11:58] LABS: CALCIUM 9.1 mg/dL (8.5-10.1)
[2022-03-15 11:59] LABS: ALBUMIN 3.4 g/dl (3.4-5.0); BLOOD UREA NITROGEN 16.5 mg/dL (7-18)
[2022-03-15 12:02] LABS: CREATININE 1.5 mg/dL (0.55-1.3)
[2022-03-15 12:04] LABS: BILIRUBIN,TOTAL 0.6 mg/dL (0.2-1); TOT PROT 6.7 g/dl (6.4-8.2)
[2022-03-15] MEDS ORDERED: MELATONIN 5 MG TABLETS PO SCH (22:00)
[2022-03-15] MEDS ORDERED: THIAMINE HCL 100 MG TABLET (FP) PO SCH (22:00)
[2022-03-16] MEDS: PRENATAL VITAMINS W/ FOLIC ACID TABLET (FP) PO SCH (10:20)
[2022-03-16 13:26] VITALS: BP 108/62; PULSE 74; RESP 18; TEMP 98.1
[2022-03-17] MEDS ORDERED: methaDONE HCL 10 MG TABLET (FOR DETOX USE ONLY) PO ONE (10:00)
[2022-03-19] MEDS ORDERED: methaDONE HCL 10 MG TABLET (FOR DETOX USE ONLY) PO ONE (10:00)
== END 2022-03-16 14:48 | disposition left against medical advice (07) | DRG 770 ==
LOC: YASAS 08:16 → Y3N 10:59
PROVIDERS: ADMIT Allergy & Immunology; ATTEND Surgery
PROC: HZ2ZZZZ Detoxification Services for Substance Abuse Treatment (ICD-10-PCS; principal; 2022-03-15)
DX: F11.23 Opioid dependence with withdrawal (principal); F14.20 Cocaine dependence, uncomplicated; F17.213 Nicotine dependence, cigarettes, with withdrawal; F41.9 Anxiety disorder, unspecified; J45.20 Mild intermittent asthma, uncomplicated
CPT/HCPCS: 0241U-QW; 36415; 71045-TC-FY; 80053; 82962; 85027; 86780; 93005; 93010

== ENCOUNTER 2022-08-03 05:00 | Inpatient (IN) | payer OTHER ==
[2022-08-03] MEDS ORDERED: NICOTINE POLACRILEX 2 MG GUM BUC PRN (05:19)
[2022-08-03] MEDS ORDERED: BENZONATATE 200 MG CAPSULE PO PRN (05:19)
[2022-08-03] MEDS ORDERED: NALOXONE HCL (KLOXXADO) 8 MG SPRAY NS PRN (05:19)
[2022-08-03] MEDS ORDERED: ACETAMINOPHEN 325 MG TABLET (FP) PO PRN (05:19)
[2022-08-03] MEDS ORDERED: BENZOCAINE/MENTHOL (CHLORASEPTIC ) LOZENGE MM PRN (05:19)
[2022-08-03] MEDS ORDERED: LOPERAMIDE HCL 2 MG CAPSULE PO PRN (05:19)
[2022-08-03] MEDS ORDERED: DICYCLOMINE HCL 10 MG CAPSULE PO PRN (05:19)
[2022-08-03] MEDS ORDERED: ONDANSETRON *ODT* 4 MG TABLET SL PRN (05:19)
[2022-08-03] MEDS ORDERED: guaiFENesin 600 MG TABLET.ER (FP) PO PRN (05:19)
[2022-08-03] MEDS ORDERED: NALOXONE HCL 0.4 MG/ML VIAL IM PRN (05:19)
[2022-08-03] MEDS ORDERED: IBUPROFEN 600 MG TABLET (FP) PO PRN (05:19)
[2022-08-03] MEDS ORDERED: IBUPROFEN 400 MG TABLET (FP) PO PRN (05:19)
[2022-08-03] MEDS ORDERED: POLYETHYLENE GLYCOL (HEALTHYLAX) 3350 17 GM PACKET PO PRN (05:19)
[2022-08-03] MEDS ORDERED: MAGNESIUM HYDROX 2400MG/30ML ORAL SUSPENSION 30 ML CUP PO PRN (05:19)
[2022-08-03] MEDS ORDERED: BISMUTH SUBSALICYLATE 524 MG/30 ML PO PRN (05:19)
[2022-08-03] MEDS ORDERED: METHOCARBAMOL 500 MG TABLET PO PRN (05:19)
[2022-08-03] MEDS ORDERED: MAG HYDROX/AL HYDROX/SIMETH 30 ML UNIT-DOSE CUP PO PRN (05:19)
[2022-08-03 05:29] VITALS: BMI 25.2
[2022-08-03] MEDS ORDERED: methaDONE HCL 10 MG TABLET (FOR DETOX USE ONLY) PO ONE ×2 (10:09→11:30)
[2022-08-03] MEDS ORDERED: cloNIDine HCL 0.1 MG TABLET PO PRN (10:09)
[2022-08-03] MEDS: PRENATAL VITAMINS W/ FOLIC ACID TABLET (FP) PO SCH (11:48)
[2022-08-03] MEDS: NICOTINE 14 MG/24 HOURS TOPICAL PATCH TD SCH (11:48)
[2022-08-03] MEDS: THIAMINE HCL 100 MG TABLET (FP) PO SCH (22:52)
[2022-08-03] MEDS: MELATONIN 5 MG TABLETS PO SCH (22:52)
[2022-08-04 01:36] LABS: PH,URINE 8.5 (5.0-8.0); URINE APPEARANCE CLOUDY; URINE BILIRUBIN NEGATIVE (NEGATIVE); URINE COLOR YELLOW; URINE GLUCOSE (UA) NEGATIVE (NEGATIVE); URINE KETONE NEGATIVE (NEGATIVE); URINE LEUK ESTERASE NEGATIVE (NEGATIVE); URINE NITRITE NEGATIVE (NEGATIVE); URINE PROTEIN NEGATIVE (NEGATIVE)
[2022-08-04] MEDS: NICOTINE 14 MG/24 HOURS TOPICAL PATCH TD SCH (10:13)
[2022-08-04] MEDS: PRENATAL VITAMINS W/ FOLIC ACID TABLET (FP) PO SCH (10:13)
[2022-08-04] MEDS: THIAMINE HCL 100 MG TABLET (FP) PO SCH (22:33)
[2022-08-04] MEDS: MELATONIN 5 MG TABLETS PO SCH (22:33)
[2022-08-05 06:40] VITALS: RESP 18; TEMP 97.7
[2022-08-05 09:24] VITALS: BP 130/79; PULSE 76
[2022-08-05] MEDS ORDERED: methaDONE HCL 10 MG TABLET (FOR DETOX USE ONLY) PO ONE (10:00)
[2022-08-05] MEDS: PRENATAL VITAMINS W/ FOLIC ACID TABLET (FP) PO SCH (10:51)
[2022-08-05] MEDS: NICOTINE 14 MG/24 HOURS TOPICAL PATCH TD SCH (10:53)
[2022-08-07] MEDS ORDERED: methaDONE HCL 10 MG TABLET (FOR DETOX USE ONLY) PO ONE (10:00)
== END 2022-08-05 12:40 | disposition left against medical advice (07) | DRG 770 ==
LOC: YASAS 05:00 → Y3N 05:33
PROVIDERS: ADMIT Allergy & Immunology; ATTEND Surgery
PROC: HZ2ZZZZ Detoxification Services for Substance Abuse Treatment (ICD-10-PCS; principal; 2022-08-03)
DX: F11.23 Opioid dependence with withdrawal (principal); F14.20 Cocaine dependence, uncomplicated; F12.20 Cannabis dependence, uncomplicated; F17.210 Nicotine dependence, cigarettes, uncomplicated; F19.282 Other psychoactive substance dependence with psychoactive substance-induced sleep disorder; F19.24 Other psychoactive substance dependence with psychoactive substance-induced mood disorder; J45.20 Mild intermittent asthma, uncomplicated
CPT/HCPCS: 0241U-QW; 36415; 71045-TC-FY; 80053; 81003; 84484; 85025; 85610; 86780; 93005; 93010

== ENCOUNTER 2023-03-11 11:43 | Inpatient (IN) | payer OTHER ==
[2023-03-11 12:04] VITALS: BMI 24.3
[2023-03-11] MEDS ORDERED: IBUPROFEN 400 MG TABLET (FP) PO PRN (13:22)
[2023-03-11] MEDS ORDERED: guaiFENesin 600 MG TABLET.ER (FP) PO PRN (13:22)
[2023-03-11] MEDS ORDERED: DICYCLOMINE HCL 10 MG CAPSULE PO PRN (13:22)
[2023-03-11] MEDS ORDERED: NALOXONE HCL 0.4 MG/ML VIAL IM PRN (13:22)
[2023-03-11] MEDS ORDERED: MAG HYDROX/AL HYDROX/SIMETH 30 ML UNIT-DOSE CUP PO PRN (13:22)
[2023-03-11] MEDS ORDERED: POLYETHYLENE GLYCOL (HEALTHYLAX) 3350 17 GM PACKET PO PRN (13:22)
[2023-03-11] MEDS ORDERED: MAGNESIUM HYDROX 2400MG/30ML ORAL SUSPENSION 30 ML CUP PO PRN (13:22)
[2023-03-11] MEDS ORDERED: hydrOXYzine PAMOATE 25 MG CAPSULE (FP) PO PRN (13:22)
[2023-03-11] MEDS ORDERED: ACETAMINOPHEN 325 MG TABLET (FP) PO PRN (13:22)
[2023-03-11] MEDS ORDERED: BENZONATATE 200 MG CAPSULE PO PRN (13:22)
[2023-03-11] MEDS ORDERED: cloNIDine HCL 0.1 MG TABLET PO PRN (13:22)
[2023-03-11] MEDS ORDERED: NALOXONE HCL (KLOXXADO) 8 MG SPRAY NS PRN (13:22)
[2023-03-11] MEDS ORDERED: LOPERAMIDE HCL 2 MG CAPSULE PO PRN (13:22)
[2023-03-11] MEDS ORDERED: IBUPROFEN 600 MG TABLET (FP) PO PRN (13:22)
[2023-03-11] MEDS ORDERED: ONDANSETRON *ODT* 4 MG TABLET SL PRN (13:22)
[2023-03-11] MEDS ORDERED: BENZOCAINE/MENTHOL (CHLORASEPTIC ) LOZENGE MM PRN (13:22)
[2023-03-11] MEDS ORDERED: chlordiazePOXIDE HCL 25 MG CAPSULE PO PRN (13:22)
[2023-03-11] MEDS ORDERED: BISMUTH SUBSALICYLATE 262 MG/15 ML BTL PO PRN (13:22)
[2023-03-11] MEDS ORDERED: methaDONE HCL 10 MG TABLET (FOR DETOX USE ONLY) PO ONE (14:40)
[2023-03-11] MEDS ORDERED: methaDONE HCL 10 MG TABLET (FOR DETOX USE ONLY) ONE (15:09)
[2023-03-11] MEDS ORDERED: PRENATAL VITAMINS W/ FOLIC ACID TABLET (FP) PO ONE (15:09)
[2023-03-11] MEDS ORDERED: NICOTINE 14 MG/24 HOURS TOPICAL PATCH TD ONE (15:09)
[2023-03-11] MEDS: NICOTINE 14 MG/24 HOURS TOPICAL PATCH TD SCH (15:13)
[2023-03-11] MEDS: PRENATAL VITAMINS W/ FOLIC ACID TABLET (FP) PO SCH (15:13)
[2023-03-11] MEDS: chlordiazePOXIDE HCL 25 MG CAPSULE PO SCH ×2 (17:28→21:59)
[2023-03-11] MEDS: MELATONIN 5 MG TABLETS PO SCH (21:58)
[2023-03-11] MEDS: THIAMINE HCL 100 MG TABLET (FP) PO SCH (21:58)
[2023-03-11] MEDS: METHOCARBAMOL 500 MG TABLET PO PRN (22:48)
[2023-03-12] MEDS: chlordiazePOXIDE HCL 25 MG CAPSULE PO SCH ×4 (06:00→22:25)
[2023-03-12] MEDS: PRENATAL VITAMINS W/ FOLIC ACID TABLET (FP) PO SCH (10:23)
[2023-03-12] MEDS: NICOTINE 14 MG/24 HOURS TOPICAL PATCH TD SCH (10:27)
[2023-03-12 13:25] LABS: HEMATOCRIT 39.4 % (35.4-49); HEMOGLOBIN 13.1 GM/dL (11.7-16.9); MCHC 33.2 g/dl (32.0-35.9); MEAN CELL VOLUME 84.5 fl (80-96); PLATELET COUNT 274 10^3/uL (134-434); RBC 4.67 M/mm3 (4.00-5.60); RDW 13.7 % (11.9-15.9); WHITE BLOOD COUNT 5.4 K/mm3 (4.0-10.0)
[2023-03-12 13:55] LABS: CHLORIDE 109 mmol/L (98-107); POTASSIUM 3.7 mmol/L (3.5-5.1); SODIUM 142 mmol/L (136-145)
[2023-03-12 14:12] LABS: ANION GAP 5 mmol/L (4-13); BLOOD UREA NITROGEN 15.9 mg/dL (7-18); CO2 28 mmol/L (21-32); GLUCOSE,RANDOM 124 mg/dL (74-106)
[2023-03-12 14:15] LABS: CREATININE 1.2 mg/dL (0.55-1.3); SGPT/ALT 22 U/L (13-61)
[2023-03-12 14:16] LABS: SGOT/AST 18 U/L (15-37)
[2023-03-12 14:17] LABS: BILIRUBIN,TOTAL 0.2 mg/dL (0.2-1); TOT PROT 5.8 g/dl (6.4-8.2)
[2023-03-12 14:18] LABS: ALK PHOS 76 U/L (45-117)
[2023-03-12] MEDS: THIAMINE HCL 100 MG TABLET (FP) PO SCH (22:25)
[2023-03-12] MEDS: MELATONIN 5 MG TABLETS PO SCH (22:25)
[2023-03-13] MEDS: chlordiazePOXIDE HCL 25 MG CAPSULE PO SCH ×3 (05:10→17:07)
[2023-03-13] MEDS ORDERED: methaDONE HCL 10 MG TABLET (FOR DETOX USE ONLY) PO ONE (10:00)
[2023-03-13] MEDS: PRENATAL VITAMINS W/ FOLIC ACID TABLET (FP) PO SCH (10:03)
[2023-03-13] MEDS: NICOTINE 14 MG/24 HOURS TOPICAL PATCH TD SCH (10:05)
[2023-03-13] MEDS: METHOCARBAMOL 500 MG TABLET PO PRN (11:34)
[2023-03-13 13:55] VITALS: BP 100/68; PULSE 75; RESP 17; TEMP 98.1
[2023-03-14] MEDS ORDERED: chlordiazePOXIDE HCL 10 MG CAPSULE PO PRN
[2023-03-14] MEDS ORDERED: chlordiazePOXIDE HCL 10 MG CAPSULE PO SCH (05:00)
[2023-03-15] MEDS ORDERED: chlordiazePOXIDE HCL 10 MG CAPSULE PO SCH (05:00)
[2023-03-15] MEDS ORDERED: methaDONE HCL 10 MG TABLET (FOR DETOX USE ONLY) PO ONE (10:00)
[2023-03-16] MEDS ORDERED: chlordiazePOXIDE HCL 10 MG CAPSULE PO ONE (05:00)
== END 2023-03-13 04:47 | disposition left against medical advice (07) | DRG 770 ==
LOC: YASAS 11:43 → Y3N 15:11
PROVIDERS: ADMIT Allergy & Immunology; ATTEND Surgery
PROC: HZ2ZZZZ Detoxification Services for Substance Abuse Treatment (ICD-10-PCS; principal; 2023-03-11)
DX: F11.23 Opioid dependence with withdrawal (principal); F10.20 Alcohol dependence, uncomplicated; F14.20 Cocaine dependence, uncomplicated; F17.210 Nicotine dependence, cigarettes, uncomplicated; F19.282 Other psychoactive substance dependence with psychoactive substance-induced sleep disorder; F19.24 Other psychoactive substance dependence with psychoactive substance-induced mood disorder; J45.909 Unspecified asthma, uncomplicated; Z59.01 Sheltered homelessness
CPT/HCPCS: 36415; 80053; 80307; 85027; 86780; 87635; 87811

== ENCOUNTER 2023-07-24 21:21 | Inpatient (IN) | payer OTHER ==
[2023-07-24 22:27] VITALS: BMI 25.1
[2023-07-24] MEDS ORDERED: NALOXONE HCL 0.4 MG/ML VIAL IM PRN (22:55)
[2023-07-24] MEDS ORDERED: NALOXONE HCL (KLOXXADO) 8 MG SPRAY NS PRN (22:55)
[2023-07-24] MEDS ORDERED: IBUPROFEN 400 MG TABLET (FP) PO PRN (22:55)
[2023-07-24] MEDS ORDERED: IBUPROFEN 600 MG TABLET (FP) PO PRN (22:55)
[2023-07-24] MEDS ORDERED: MAGNESIUM HYDROX 2400MG/30ML ORAL SUSPENSION 30 ML CUP PO PRN (22:55)
[2023-07-24] MEDS ORDERED: LOPERAMIDE HCL 2 MG CAPSULE PO PRN (22:55)
[2023-07-24] MEDS ORDERED: ONDANSETRON *ODT* 4 MG TABLET SL PRN (22:55)
[2023-07-24] MEDS ORDERED: MAG HYDROX/AL HYDROX/SIMETH 30 ML UNIT-DOSE CUP PO PRN (22:55)
[2023-07-24] MEDS ORDERED: BENZONATATE 200 MG CAPSULE PO PRN (22:55)
[2023-07-24] MEDS ORDERED: POLYETHYLENE GLYCOL (HEALTHYLAX) 3350 17 GM PACKET PO PRN (22:55)
[2023-07-24] MEDS ORDERED: NICOTINE POLACRILEX 4 MG GUM BUC PRN (22:55)
[2023-07-24] MEDS ORDERED: guaiFENesin 600 MG TABLET.ER (FP) PO PRN (22:55)
[2023-07-24] MEDS ORDERED: ACETAMINOPHEN 325 MG TABLET (FP) PO PRN (22:55)
[2023-07-24] MEDS ORDERED: DICYCLOMINE HCL 10 MG CAPSULE PO PRN (22:55)
[2023-07-24] MEDS ORDERED: BISMUTH SUBSALICYLATE 524 MG/30 ML PO PRN (22:55)
[2023-07-24] MEDS ORDERED: BENZOCAINE/MENTHOL (CHLORASEPTIC ) LOZENGE MM PRN (22:55)
[2023-07-25] MEDS: hydrOXYzine PAMOATE 25 MG CAPSULE (FP) PO PRN (05:39)
[2023-07-25] MEDS: METHOCARBAMOL 500 MG TABLET PO PRN (05:39)
[2023-07-25] MEDS ORDERED: cloNIDine HCL 0.1 MG TABLET PO PRN (09:58)
[2023-07-25] MEDS: NICOTINE 14 MG/24 HOURS TOPICAL PATCH TD SCH (10:19)
[2023-07-25] MEDS: PRENATAL VITAMINS W/ FOLIC ACID TABLET (FP) PO SCH (10:19)
[2023-07-25] MEDS: methaDONE HCL 10 MG TABLET (FOR DETOX USE ONLY) PO ONE (10:19)
[2023-07-25] MEDS: diazePAM 5 MG TABLET PO SCH (10:21)
[2023-07-25 14:29] LABS: HEMOGLOBIN 12.6 GM/dL (11.7-16.9); MCH 27.9 pg (25.7-33.7); MCHC 33.3 g/dl (32.0-35.9); MEAN CELL VOLUME 83.8 fl (80-96); PLATELET COUNT 242 10^3/uL (134-434); RBC 4.53 M/mm3 (4.00-5.60); RDW 13.4 % (11.9-15.9); WHITE BLOOD COUNT 4.3 K/mm3 (4.0-10.0)
[2023-07-25 14:36] LABS: CHLORIDE 104 mmol/L (98-107); POTASSIUM 4.4 mmol/L (3.5-5.1); SODIUM 142 mmol/L (136-145)
[2023-07-25 14:45] LABS: CALCIUM 9.3 mg/dL (8.5-10.1)
[2023-07-25 14:46] LABS: ALBUMIN 3.2 g/dl (3.4-5.0); ANION GAP 3 mmol/L (4-13); BLOOD UREA NITROGEN 15.6 mg/dL (7-18); CO2 35 mmol/L (21-32); GLUCOSE,RANDOM 79 mg/dL (74-106)
[2023-07-25 14:49] LABS: ALK PHOS 79 U/L (45-117); CREATININE 1.1 mg/dL (0.55-1.3); SGOT/AST 33 U/L (15-37); SGPT/ALT 22 U/L (13-61)
[2023-07-25 14:50] LABS: BILIRUBIN,TOTAL 0.5 mg/dL (0.2-1); TOT PROT 6.1 g/dl (6.4-8.2)
[2023-07-25] MEDS: THIAMINE 100 MG TABLET PO SCH (22:26)
[2023-07-25] MEDS: MELATONIN 5 MG TABLETS PO SCH (22:26)
[2023-07-27] MEDS: diazePAM 5 MG TABLET PO SCH (06:33)
[2023-07-27] MEDS: diazePAM 5 MG TABLET PO PRN (09:54)
[2023-07-27] MEDS: methaDONE HCL 10 MG TABLET (FOR DETOX USE ONLY) PO ONE (09:55)
[2023-07-28] MEDS: diazePAM 5 MG TABLET PO SCH (06:36)
[2023-07-28 09:12] VITALS: BP 104/66; PULSE 76; RESP 20; TEMP 98.2
[2023-07-29] MEDS ORDERED: diazePAM 5 MG TABLET PO ONE (06:00)
[2023-07-29] MEDS ORDERED: methaDONE HCL 10 MG TABLET (FOR DETOX USE ONLY) PO ONE (10:00)
== END 2023-07-28 09:48 | disposition home or self-care (01) | DRG 773 ==
LOC: YASAS 21:21 → Y3N 23:00
PROVIDERS: ADMIT Allergy & Immunology; ATTEND Surgery
PROC: HZ2ZZZZ Detoxification Services for Substance Abuse Treatment (ICD-10-PCS; principal; 2023-07-24)
DX: F11.23 Opioid dependence with withdrawal (principal); F10.230 Alcohol dependence with withdrawal, uncomplicated; F14.20 Cocaine dependence, uncomplicated; F17.210 Nicotine dependence, cigarettes, uncomplicated; F31.9 Bipolar disorder, unspecified; F41.9 Anxiety disorder, unspecified; J45.20 Mild intermittent asthma, uncomplicated
CPT/HCPCS: 36415; 80053; 80305; 80307; 85027; 86780

== ENCOUNTER 2023-09-08 12:44 | Inpatient (IN) | payer OTHER ==
[2023-09-08 13:37] VITALS: BMI 24.3
[2023-09-08] MEDS ORDERED: ALBUTEROL SO4 HFA INHALER IH PRN (14:43)
[2023-09-08] MEDS ORDERED: P-EPHED 60MG/TRIPROLIDI 2.5MG TABLET PO PRN (14:45)
[2023-09-08] MEDS ORDERED: DICYCLOMINE HCL 10 MG CAPSULE PO PRN (14:45)
[2023-09-08] MEDS ORDERED: DOCUSATE SODIUM 100 MG CAPSULE (FP) PO PRN (14:45)
[2023-09-08] MEDS ORDERED: guaiFENesin 600 MG TABLET.ER (FP) PO PRN (14:45)
[2023-09-08] MEDS ORDERED: IBUPROFEN 400 MG TABLET (FP) PO PRN (14:45)
[2023-09-08] MEDS ORDERED: LOPERAMIDE HCL 2 MG CAPSULE PO PRN (14:45)
[2023-09-08] MEDS ORDERED: BISMUTH SUBSALICYLATE 262 MG/15 ML BTL PO PRN (14:45)
[2023-09-08] MEDS ORDERED: ONDANSETRON *ODT* 4 MG TABLET SL PRN (14:45)
[2023-09-08] MEDS ORDERED: ACETAMINOPHEN 325 MG TABLET (FP) PO PRN (14:45)
[2023-09-08] MEDS ORDERED: MAG HYDROX/AL HYDROX/SIMETH 30 ML UNIT-DOSE CUP PO PRN (14:45)
[2023-09-08] MEDS ORDERED: POLYETHYLENE GLYCOL (HEALTHYLAX) 3350 17 GM PACKET PO PRN (14:45)
[2023-09-08] MEDS ORDERED: BENZONATATE 200 MG CAPSULE PO PRN (14:45)
[2023-09-08] MEDS ORDERED: IBUPROFEN 600 MG TABLET (FP) PO PRN (14:45)
[2023-09-08] MEDS ORDERED: NALOXONE (NARCAN) HCL 4 MG/0.1 ML SPRAY NS PRN (14:45)
[2023-09-08] MEDS ORDERED: BENZOCAINE/MENTHOL (CHLORASEPTIC ) LOZENGE MM PRN (14:45)
[2023-09-08] MEDS ORDERED: NICOTINE POLACRILEX 2 MG LOZENGE BC PRN (14:45)
[2023-09-08] MEDS ORDERED: NALOXONE HCL 0.4 MG/ML VIAL IM PRN (14:45)
[2023-09-08] MEDS ORDERED: MAGNESIUM HYDROX 2400MG/30ML ORAL SUSPENSION 30 ML CUP PO PRN (14:45)
[2023-09-08] MEDS ORDERED: NICOTINE POLACRILEX 2 MG GUM BUC PRN (14:45)
[2023-09-08] MEDS ORDERED: cloNIDine HCL 0.1 MG TABLET PO PRN (14:47)
[2023-09-08] MEDS: methaDONE HCL 10 MG TABLET (FOR DETOX USE ONLY) PO ONE (18:23)
[2023-09-08] MEDS: chlordiazePOXIDE HCL 25 MG CAPSULE PO PRN (18:27)
[2023-09-08] MEDS ORDERED: methaDONE HCL 10 MG TABLET (FOR DETOX USE ONLY) PO ONE (22:00)
[2023-09-08] MEDS: MELATONIN 5 MG TABLETS PO SCH (22:31)
[2023-09-08] MEDS: THIAMINE 100 MG TABLET PO SCH (22:31)
[2023-09-09] MEDS: PRENATAL VITAMINS W/ FOLIC ACID TABLET (FP) PO SCH (09:57)
[2023-09-09 12:19] LABS: HEMATOCRIT 41.5 % (35.4-49); HEMOGLOBIN 13.5 GM/dL (11.7-16.9); MCH 27.6 pg (25.7-33.7); MCHC 32.5 g/dl (32.0-35.9); MEAN CELL VOLUME 85.2 fl (80-96); MEAN PLT VOLUME 7.5 fl (7.5-11.1); PLATELET COUNT 259 10^3/uL (134-434); RBC 4.87 M/mm3 (4.00-5.60); WHITE BLOOD COUNT 4.7 K/mm3 (4.0-10.0)
[2023-09-09 12:52] LABS: POTASSIUM 3.8 mmol/L (3.5-5.1)
[2023-09-09 13:08] LABS: ALBUMIN 3.9 g/dl (3.4-5.0); BLOOD UREA NITROGEN 18.6 mg/dL (7-18); CALCIUM 9.4 mg/dL (8.5-10.1)
[2023-09-09 13:10] LABS: CREATININE 1.1 mg/dL (0.55-1.3)
[2023-09-09 13:12] LABS: BILIRUBIN,TOTAL 0.5 mg/dL (0.2-1); TOT PROT 7.2 g/dl (6.4-8.2)
[2023-09-10] MEDS: methaDONE HCL 10 MG TABLET (FOR DETOX USE ONLY) PO ONE (10:38)
[2023-09-10] MEDS: METHOCARBAMOL 500 MG TABLET PO PRN (22:34)
[2023-09-11 12:51] VITALS: BP 120/75; PULSE 61; RESP 17; TEMP 97.3
[2023-09-12] MEDS ORDERED: methaDONE HCL 10 MG TABLET (FOR DETOX USE ONLY) PO ONE (10:00)
== END 2023-09-11 14:05 | disposition home or self-care (01) | DRG 773 ==
LOC: YASAS 12:44 → Y6N 17:29
PROVIDERS: ADMIT Allergy & Immunology; ATTEND Surgery
PROC: HZ2ZZZZ Detoxification Services for Substance Abuse Treatment (ICD-10-PCS; principal; 2023-09-08)
DX: F11.23 Opioid dependence with withdrawal (principal); F10.20 Alcohol dependence, uncomplicated; F14.20 Cocaine dependence, uncomplicated; F16.20 Hallucinogen dependence, uncomplicated; F17.210 Nicotine dependence, cigarettes, uncomplicated; J45.20 Mild intermittent asthma, uncomplicated
CPT/HCPCS: 36415; 80053; 80305; 80307; 85027; 86780

== ENCOUNTER 2024-04-16 15:39 | Inpatient (IN) | payer OTHER ==
[2024-04-16 15:52] VITALS: TEMP 98.6; BMI 27.2
[2024-04-16 17:21] LABS: BASO % 0.4 % (0-2.0); EOS % 2.8 % (0-4.5); HEMOGLOBIN 12.4 GM/dL (11.7-16.9); LYMPH % 16.3 % (8-40); MCHC 32.6 g/dl (32.0-35.9); MEAN PLT VOLUME 6.5 fl (7.5-11.1); MONO % 15.3 % (3.8-10.2); NEUT % 65.2 % (42.8-82.8); PH,URINE 8.5 (5.0-8.0); PLATELET COUNT 257 10^3/uL (134-434); RBC 4.58 M/mm3 (4.00-5.60); RDW 14.1 % (11.9-15.9); URINE APPEARANCE CLEAR; URINE BILIRUBIN NEGATIVE (NEGATIVE); URINE COLOR YELLOW; URINE GLUCOSE (UA) NEGATIVE (NEGATIVE); URINE KETONE NEGATIVE (NEGATIVE); URINE LEUK ESTERASE NEGATIVE (NEGATIVE); URINE NITRITE NEGATIVE (NEGATIVE); URINE PROTEIN NEGATIVE (NEGATIVE); URINE UROBILINOGEN 0.2 mg/dL (0.2-1.0); WHITE BLOOD COUNT 6.6 K/mm3 (4.0-10.0)
[2024-04-16 17:42] LABS: POTASSIUM 4.6 mmol/L (3.5-5.1)
[2024-04-16 17:43] LABS: COCAINE, UR NEGATIVE (NEGATIVE); METHADONE, UR NEGATIVE (NEGATIVE); OPIATES, URI NEGATIVE (NEGATIVE); URINE AMPHETAMINES NEGATIVE (NEGATIVE); URINE BARBITURATES NEGATIVE (NEGATIVE); URINE BENZODIAZEPINES POSITIVE (NEGATIVE)
[2024-04-16 17:45] LABS: ALBUMIN 3.4 g/dl (3.4-5.0); BLOOD UREA NITROGEN 10.9 mg/dL (7-18); CALCIUM 9.7 mg/dL (8.5-10.1); PHENCYCLIDINE,URINE NEGATIVE (NEGATIVE)
[2024-04-16 17:48] LABS: CREATININE 1.2 mg/dL (0.55-1.3)
[2024-04-16 17:49] LABS: BILIRUBIN,TOTAL 0.2 mg/dL (0.2-1); TOT PROT 6.8 g/dl (6.4-8.2)
[2024-04-16] MEDS ORDERED: ACETAMINOPHEN 325 MG TABLET (FP) PO PRN (22:03)
[2024-04-17 05:37] VITALS: BP 111/71; PULSE 67; RESP 18
[2024-04-17 06:03] LABS: HEMATOCRIT 39.5 % (35.4-49); HEMOGLOBIN 12.6 GM/dL (11.7-16.9); MCH 26.9 pg (25.7-33.7); MCHC 31.9 g/dl (32.0-35.9); MEAN CELL VOLUME 84.1 fl (80-96); MEAN PLT VOLUME 6.6 fl (7.5-11.1); PLATELET COUNT 260 10^3/uL (134-434)
[2024-04-17 06:24] LABS: POTASSIUM 4.4 mmol/L (3.5-5.1)
[2024-04-17 06:26] LABS: ALBUMIN 3.2 g/dl (3.4-5.0); BLOOD UREA NITROGEN 13.4 mg/dL (7-18); MAGNESIUM 2.3 mg/dL (1.8-2.4)
[2024-04-17 06:29] LABS: CREATININE 1.2 mg/dL (0.55-1.3)
[2024-04-17 06:30] LABS: BILIRUBIN,TOTAL 0.3 mg/dL (0.2-1); TOT PROT 6.4 g/dl (6.4-8.2)
[2024-04-17] MEDS ORDERED: LORazepam 2 MG/ML SDV VIAL ONE (08:40)
[2024-04-17] MEDS ORDERED: FOLIC ACID 1 MG TABLET (FP) ONE (09:07)
[2024-04-17] MEDS ORDERED: ENOXAPARIN NA (PORCINE) 40 MG/0.4 ML DISP.SYRIN SQ ONE (09:07)
[2024-04-17] MEDS ORDERED: THIAMINE 100 MG TABLET ONE (09:07)
[2024-04-17] MEDS: ENOXAPARIN NA (PORCINE) 40 MG/0.4 ML DISP.SYRIN SQ SCH (09:20)
[2024-04-17] MEDS: FOLIC ACID 1 MG TABLET (FP) PO SCH (09:20)
[2024-04-17] MEDS: THIAMINE 100 MG TABLET PO SCH (09:20)
== END 2024-04-17 10:25 | disposition home or self-care (01) | DRG 204 ==
LOC: JER 15:39 → JERBED 21:40 → OBSVTOIN 22:03
PROVIDERS: ADMIT Internal Medicine
DX: R55 Syncope and collapse (principal); B97.4 Respiratory syncytial virus as the cause of diseases classified elsewhere; F10.10 Alcohol abuse, uncomplicated; F17.210 Nicotine dependence, cigarettes, uncomplicated; I44.30 Unspecified atrioventricular block; J45.909 Unspecified asthma, uncomplicated; R41.0 Disorientation, unspecified; R30.0 Dysuria; R10.11 Right upper quadrant pain
CPT/HCPCS: 0241U-QW; 36415; 70450-TC; 71045-TC-FY; 72125-TC; 74178-TC; 80053; 80307; 81003; 82550; 83735; 84484; 85025; 85027; 87086; 93005; 93010; 99285-25; G0378; Q9967

== ENCOUNTER 2024-06-30 09:22 | Inpatient (IN) | payer OTHER ==
[2024-06-30 09:51] VITALS: BMI 28.1
[2024-06-30] MEDS ORDERED: DICYCLOMINE HCL 10 MG CAPSULE PO PRN (10:11)
[2024-06-30] MEDS ORDERED: IBUPROFEN 600 MG TABLET (FP) PO PRN (10:11)
[2024-06-30] MEDS ORDERED: MAGNESIUM HYDROX 2400MG/30ML ORAL SUSPENSION 30 ML CUP PO PRN (10:11)
[2024-06-30] MEDS ORDERED: NALOXONE (NARCAN) HCL 4 MG/0.1 ML SPRAY NS PRN (10:11)
[2024-06-30] MEDS ORDERED: POLYETHYLENE GLYCOL (HEALTHYLAX) 3350 17 GM PACKET PO PRN (10:11)
[2024-06-30] MEDS ORDERED: chlordiazePOXIDE HCL 25 MG CAPSULE PO PRN (10:11)
[2024-06-30] MEDS ORDERED: ONDANSETRON *ODT* 4 MG TABLET SL PRN (10:11)
[2024-06-30] MEDS ORDERED: IBUPROFEN 400 MG TABLET (FP) PO PRN (10:11)
[2024-06-30] MEDS ORDERED: NICOTINE POLACRILEX 2 MG GUM BUC PRN (10:11)
[2024-06-30] MEDS ORDERED: BENZOCAINE/MENTHOL (CHLORASEPTIC ) LOZENGE MM PRN (10:11)
[2024-06-30] MEDS ORDERED: hydrOXYzine PAMOATE 25 MG CAPSULE (FP) PO PRN (10:11)
[2024-06-30] MEDS ORDERED: methaDONE HCL 10 MG TABLET (FOR DETOX USE ONLY) PO PRN (10:11)
[2024-06-30] MEDS ORDERED: BISMUTH SUBSALICYLATE 262 MG/15 ML BTL PO PRN (10:11)
[2024-06-30] MEDS ORDERED: LOPERAMIDE HCL 2 MG CAPSULE PO PRN (10:11)
[2024-06-30] MEDS ORDERED: guaiFENesin 600 MG TABLET.ER (FP) PO PRN (10:11)
[2024-06-30] MEDS ORDERED: BENZONATATE 200 MG CAPSULE PO PRN (10:11)
[2024-06-30] MEDS ORDERED: ALBUTEROL SO4 HFA INHALER IH PRN (10:30)
[2024-06-30] MEDS ORDERED: methaDONE HCL 10 MG TABLET (FOR DETOX USE ONLY) ONE (10:53)
[2024-06-30] MEDS ORDERED: chlordiazePOXIDE HCL 25 MG CAPSULE ONE (10:53)
[2024-06-30] MEDS ORDERED: BUPRENORPHINE/NALOXONE 0.5 MG/0.125 MG FILM ONE (10:53)
[2024-06-30] MEDS: methaDONE HCL 10 MG TABLET (FOR DETOX USE ONLY) PO ONE (10:55)
[2024-06-30] MEDS: BUPRENORPHINE/NALOXONE 0.5 MG/0.125 MG FILM SL ONE ×2 (10:55→23:27)
[2024-06-30] MEDS: chlordiazePOXIDE HCL 25 MG CAPSULE PO SCH (10:56)
[2024-06-30] MEDS: NICOTINE 21 MG/24 HOURS TOPICAL PATCH TD SCH (11:01)
[2024-06-30] MEDS: cloNIDine HCL 0.1 MG TABLET PO SCH (14:16)
[2024-06-30] MEDS: MAG HYDROX/AL HYDROX/SIMETH 30 ML UNIT-DOSE CUP PO PRN (17:33)
[2024-06-30] MEDS: MELATONIN 5 MG TABLETS PO SCH (22:55)
[2024-06-30] MEDS: THIAMINE 100 MG TABLET PO SCH (22:57)
[2024-07-01] MEDS: BUPRENORPHINE/NALOXONE 0.5 MG/0.125 MG FILM SL SCH (10:37)
[2024-07-01] MEDS: PRENATAL VITAMINS W/ FOLIC ACID TABLET (FP) PO SCH (10:42)
[2024-07-01 11:16] LABS: HEMOGLOBIN 11.8 g/dL (13.7-17.5); MCHC 31.1 g/dl (32.3-36.5); MEAN CELL VOLUME 86.2 fl (79.0-92.2); MEAN PLT VOLUME 9.4 fl (9.4-12.4); PLATELET COUNT 253 x10^3/uL (163-337); RDW 13.5 % (12.2-16.1)
[2024-07-01 11:33] LABS: POTASSIUM 3.8 mmol/L (3.5-5.1)
[2024-07-01 11:43] LABS: ALBUMIN 3.5 g/dl (3.4-5.0)
[2024-07-01 11:44] LABS: CALCIUM 9.1 mg/dL (8.5-10.1)
[2024-07-01 11:47] LABS: CREATININE 1.2 mg/dL (0.55-1.3)
[2024-07-01] MEDS: APIXABAN 5 MG TABLET PO SCH (11:47)
[2024-07-01 11:48] LABS: BILIRUBIN,TOTAL 0.5 mg/dL (0.2-1); TOT PROT 6.4 g/dl (6.4-8.2)
[2024-07-01 11:51] LABS: BLOOD UREA NITROGEN 12.1 mg/dL (7-18)
[2024-07-02] MEDS: chlordiazePOXIDE HCL 25 MG CAPSULE PO SCH (05:59)
[2024-07-02] MEDS: BUPRENORPHINE/NALOXONE 2 MG/0.5 MG FILM PACKET SL SCH (10:48)
[2024-07-02] MEDS: methaDONE HCL 10 MG TABLET (FOR DETOX USE ONLY) PO ONE (10:50)
[2024-07-02] MEDS: ACETAMINOPHEN 325 MG TABLET (FP) PO PRN (18:10)
[2024-07-02] MEDS: METHOCARBAMOL 500 MG TABLET PO PRN (18:10)
[2024-07-02 21:30] VITALS: BP 106/75; PULSE 78; RESP 18; TEMP 97.7
[2024-07-03] MEDS ORDERED: chlordiazePOXIDE HCL 10 MG CAPSULE PO PRN
[2024-07-03] MEDS ORDERED: chlordiazePOXIDE HCL 10 MG CAPSULE PO SCH (05:00)
[2024-07-03] MEDS ORDERED: BUPRENORPHINE/NALOXONE 4 MG/1 MG FILM PACKET SL SCH (10:00)
[2024-07-04] MEDS ORDERED: chlordiazePOXIDE HCL 10 MG CAPSULE PO SCH (05:00)
[2024-07-04] MEDS ORDERED: methaDONE HCL 10 MG TABLET (FOR DETOX USE ONLY) PO ONE (10:00)
[2024-07-04] MEDS ORDERED: BUPRENORPHINE/NALOXONE 8 MG/2 MG FILM PACKET SL SCH (10:00)
[2024-07-05] MEDS ORDERED: chlordiazePOXIDE HCL 10 MG CAPSULE PO ONE (05:00)
[2024-07-05] MEDS ORDERED: BUPRENORPHINE/NALOXONE 8 MG/2 MG FILM PACKET SL SCH (10:00)
== END 2024-07-02 21:18 | disposition left against medical advice (07) | DRG 770 ==
LOC: YASAS 09:22 → Y6N 10:23
PROVIDERS: ADMIT Allergy & Immunology; ATTEND Allergy & Immunology
PROC: HZ2ZZZZ Detoxification Services for Substance Abuse Treatment (ICD-10-PCS; principal; 2024-06-30)
DX: F11.23 Opioid dependence with withdrawal (principal); F10.230 Alcohol dependence with withdrawal, uncomplicated; F14.20 Cocaine dependence, uncomplicated; F16.20 Hallucinogen dependence, uncomplicated; F17.210 Nicotine dependence, cigarettes, uncomplicated; F19.280 Other psychoactive substance dependence with psychoactive substance-induced anxiety disorder; F19.282 Other psychoactive substance dependence with psychoactive substance-induced sleep disorder; F19.24 Other psychoactive substance dependence with psychoactive substance-induced mood disorder; J45.20 Mild intermittent asthma, uncomplicated; Z86.718 Personal history of other venous thrombosis and embolism; Z79.01 Long term (current) use of anticoagulants
CPT/HCPCS: 36415; 80053; 80305; 80307; 85027; 86780; 93005; 93010

== ENCOUNTER 2024-07-19 18:08 | Inpatient (IN) | payer OTHER ==
[2024-07-19 18:49] VITALS: BMI 27.9
[2024-07-19] MEDS ORDERED: NICOTINE POLACRILEX 2 MG GUM BUC PRN (19:15)
[2024-07-19] MEDS ORDERED: NICOTINE POLACRILEX 2 MG LOZENGE BC PRN (19:15)
[2024-07-19] MEDS ORDERED: LOPERAMIDE HCL 2 MG CAPSULE PO PRN (19:15)
[2024-07-19] MEDS ORDERED: guaiFENesin 600 MG TABLET.ER (FP) PO PRN (19:15)
[2024-07-19] MEDS ORDERED: MAG HYDROX/AL HYDROX/SIMETH 30 ML UNIT-DOSE CUP PO PRN (19:15)
[2024-07-19] MEDS ORDERED: ONDANSETRON *ODT* 4 MG TABLET SL PRN (19:15)
[2024-07-19] MEDS ORDERED: BISMUTH SUBSALICYLATE 524 MG/30 ML PO PRN (19:15)
[2024-07-19] MEDS ORDERED: POLYETHYLENE GLYCOL (HEALTHYLAX) 3350 17 GM PACKET PO PRN (19:15)
[2024-07-19] MEDS ORDERED: BENZONATATE 200 MG CAPSULE PO PRN (19:15)
[2024-07-19] MEDS ORDERED: BENZOCAINE/MENTHOL (CHLORASEPTIC ) LOZENGE MM PRN (19:15)
[2024-07-19] MEDS ORDERED: MAGNESIUM HYDROX 2400MG/30ML ORAL SUSPENSION 30 ML CUP PO PRN (19:15)
[2024-07-19] MEDS ORDERED: DICYCLOMINE HCL 10 MG CAPSULE PO PRN (19:15)
[2024-07-19] MEDS ORDERED: IBUPROFEN 400 MG TABLET (FP) PO PRN (19:15)
[2024-07-19] MEDS ORDERED: NALOXONE (NARCAN) HCL 4 MG/0.1 ML SPRAY NS PRN (19:15)
[2024-07-19] MEDS: THIAMINE 100 MG TABLET PO SCH (21:41)
[2024-07-19] MEDS: MELATONIN 5 MG TABLETS PO SCH (21:41)
[2024-07-19] MEDS: IBUPROFEN 600 MG TABLET (FP) PO PRN (21:41)
[2024-07-19] MEDS: METHOCARBAMOL 500 MG TABLET PO PRN (21:41)
[2024-07-20 10:07] LABS: HEMATOCRIT 35.6 % (40.1-51.0); HEMOGLOBIN 11.3 g/dL (13.7-17.5); MCHC 31.7 g/dl (32.3-36.5); MEAN CELL VOLUME 85.2 fl (79.0-92.2); PLATELET COUNT 275 x10^3/uL (163-337); RDW 13.8 % (12.2-16.1)
[2024-07-20] MEDS: cloNIDine HCL 0.1 MG TABLET PO PRN (10:18)
[2024-07-20] MEDS: PRENATAL VITAMINS W/ FOLIC ACID TABLET (FP) PO SCH (10:18)
[2024-07-20] MEDS: methaDONE HCL 10 MG TABLET (FOR DETOX USE ONLY) PO ONE (10:18)
[2024-07-20] MEDS: diazePAM 5 MG TABLET PO PRN ×2 (10:18→13:32)
[2024-07-20 11:16] LABS: CHLORIDE 106 mmol/L (98-107); POTASSIUM 3.3 mmol/L (3.5-5.1); SODIUM 141 mmol/L (136-145)
[2024-07-20 11:26] LABS: ALBUMIN 3.2 g/dl (3.4-5.0); GLUCOSE,RANDOM 88 mg/dL (74-106); SGOT/AST 26 U/L (15-37); SGPT/ALT 23 U/L (13-61)
[2024-07-20 11:28] LABS: BILIRUBIN,TOTAL 0.3 mg/dL (0.2-1); TOT PROT 5.9 g/dl (6.4-8.2)
[2024-07-20 11:29] LABS: ALK PHOS 79 U/L (45-117)
[2024-07-20 11:33] LABS: CALCIUM 9.2 mg/dL (8.5-10.1)
[2024-07-20 11:34] LABS: ANION GAP 5 mmol/L (4-13); CO2 30 mmol/L (21-32)
[2024-07-20] MEDS ORDERED: ALBUTEROL SO4 HFA INHALER IH PRN (13:15)
[2024-07-20] MEDS: APIXABAN 5 MG TABLET PO SCH (13:31)
[2024-07-20] MEDS: ACETAMINOPHEN 325 MG TABLET (FP) PO PRN (17:12)
[2024-07-20] MEDS: diazePAM 5 MG TABLET PO SCH (17:13)
[2024-07-20] MEDS: POTASSIUM CHLORIDE ORAL LIQUID 20 MEQ/15 ML PO ONE (19:26)
[2024-07-20] MEDS: SUVOREXANT 10 MG TABLET PO PRN (22:13)
[2024-07-21 12:35] LABS: POTASSIUM 3.6 mmol/L (3.5-5.1)
[2024-07-21 12:38] LABS: CALCIUM 9.4 mg/dL (8.5-10.1)
[2024-07-21 12:39] LABS: BLOOD UREA NITROGEN 10.6 mg/dL (7-18)
[2024-07-21 12:42] LABS: CREATININE 1.1 mg/dL (0.55-1.3)
[2024-07-22] MEDS: diazePAM 5 MG TABLET PO SCH (05:50)
[2024-07-22] MEDS: methaDONE HCL 10 MG TABLET (FOR DETOX USE ONLY) PO ONE (09:44)
[2024-07-23] MEDS: diazePAM 5 MG TABLET PO SCH (05:29)
[2024-07-23] MEDS: METHOCARBAMOL 500 MG TABLET PO PRN (19:22)
[2024-07-24] MEDS: hydrOXYzine PAMOATE 25 MG CAPSULE (FP) PO PRN (02:59)
[2024-07-24] MEDS: diazePAM 5 MG TABLET PO ONE (06:12)
[2024-07-24] MEDS: methaDONE HCL 10 MG TABLET (FOR DETOX USE ONLY) PO ONE (10:29)
[2024-07-24 16:51] VITALS: RESP 16
[2024-07-24] MEDS: SUVOREXANT 10 MG TABLET PO SCH (22:02)
[2024-07-25 08:57] VITALS: BP 111/64; PULSE 69; TEMP 97.6
== END 2024-07-25 09:32 | disposition home or self-care (01) | DRG 773 ==
LOC: YASAS 18:08 → Y3N 20:44
PROVIDERS: ADMIT Allergy & Immunology; ATTEND Allergy & Immunology
PROC: HZ2ZZZZ Detoxification Services for Substance Abuse Treatment (ICD-10-PCS; principal; 2024-07-19)
DX: F11.23 Opioid dependence with withdrawal (principal); F10.230 Alcohol dependence with withdrawal, uncomplicated; F13.20 Sedative, hypnotic or anxiolytic dependence, uncomplicated; F14.20 Cocaine dependence, uncomplicated; F16.20 Hallucinogen dependence, uncomplicated; F17.210 Nicotine dependence, cigarettes, uncomplicated; F19.282 Other psychoactive substance dependence with psychoactive substance-induced sleep disorder; F31.9 Bipolar disorder, unspecified; F41.9 Anxiety disorder, unspecified; E87.6 Hypokalemia; J45.909 Unspecified asthma, uncomplicated; Z86.718 Personal history of other venous thrombosis and embolism; Z79.01 Long term (current) use of anticoagulants
CPT/HCPCS: 36415; 80048; 80053; 80305; 80307; 82962; 85027; 99282-25

== ENCOUNTER 2024-12-31 09:36 | Inpatient (IN) | payer OTHER ==
[2024-12-31 10:12] VITALS: BMI 29.9
[2024-12-31] MEDS ORDERED: BENZONATATE 200 MG CAPSULE PO PRN (10:59)
[2024-12-31] MEDS ORDERED: IBUPROFEN 400 MG TABLET (FP) PO PRN (10:59)
[2024-12-31] MEDS ORDERED: MAGNESIUM HYDROX 2400MG/30ML ORAL SUSPENSION 30 ML CUP PO PRN (10:59)
[2024-12-31] MEDS ORDERED: ONDANSETRON *ODT* 4 MG TABLET SL PRN (10:59)
[2024-12-31] MEDS ORDERED: NALOXONE (NARCAN) HCL 4 MG/0.1 ML SPRAY NS PRN (10:59)
[2024-12-31] MEDS ORDERED: POLYETHYLENE GLYCOL (HEALTHYLAX) 3350 17 GM PACKET PO PRN (10:59)
[2024-12-31] MEDS ORDERED: BENZOCAINE/MENTHOL (CHLORASEPTIC ) LOZENGE MM PRN (10:59)
[2024-12-31] MEDS ORDERED: guaiFENesin 600 MG TABLET.ER (FP) PO PRN (10:59)
[2024-12-31] MEDS ORDERED: LOPERAMIDE HCL 2 MG CAPSULE PO PRN (10:59)
[2024-12-31] MEDS ORDERED: ALBUTEROL SO4 HFA INHALER IH PRN (11:20)
[2024-12-31] MEDS: BACITRACIN 0.9 GM PACKET TP SCH (11:48)
[2024-12-31 14:32] LABS: HCV DIAGNOSTIC IN-HOUSE W/RFLX NON-REACTIVE (NONREACTIVE); HIV INTERPRETATION NEGATIVE (NEGATIVE)
[2024-12-31] MEDS: MIRTAZAPINE 15 MG TABLET (FP) PO SCH (21:59)
[2024-12-31] MEDS: THIAMINE 100 MG TABLET PO SCH (21:59)
[2024-12-31] MEDS: MELATONIN 5 MG TABLETS PO SCH (22:01)
[2025-01-01] MEDS: PRENATAL VITAMINS W/ FOLIC ACID TABLET (FP) PO SCH (10:20)
[2025-01-01] MEDS: MUPIROCIN 2% TOPICAL OINTMENT 22 GM TUBE TP SCH (10:20)
[2025-01-01] MEDS: NICOTINE 14 MG/24 HOURS TOPICAL PATCH TD SCH (10:45)
[2025-01-01 10:48] LABS: MCHC 31.4 g/dl (32.3-36.5); MEAN CELL VOLUME 85.7 fl (79.0-92.2); MEAN PLT VOLUME 8.9 fl (9.4-12.4); RDW 14.1 % (12.2-16.1)
[2025-01-01 11:00] LABS: GLUCOSE,RANDOM 102.0 mg/dL (74-106); TOT PROT 6.1 g/dl (6.4-8.2)
[2025-01-01 11:01] LABS: CO2 25.0 mmol/L (21-32)
[2025-01-01 11:03] LABS: ALK PHOS 83.0 U/L (40-150)
[2025-01-01 11:06] LABS: CREATININE 1.12 mg/dL (0.55-1.3); SGOT/AST 32.0 U/L (5-34); SGPT/ALT 26.0 U/L (0-55)
[2025-01-01] MEDS: SUVOREXANT 10 MG TABLET PO PRN (22:36)
[2025-01-03] MEDS: hydrOXYzine PAMOATE 25 MG CAPSULE (FP) PO PRN (01:43)
[2025-01-03] MEDS: METHOCARBAMOL 500 MG TABLET PO PRN (01:43)
[2025-01-03] MEDS ORDERED: MIRTAZAPINE 15 MG TABLET (FP) PO SCH (11:58)
[2025-01-03] MEDS: MIRTAZAPINE 15 MG TABLET (FP) PO SCH (22:05)
[2025-01-04] MEDS: DICYCLOMINE HCL 10 MG CAPSULE PO PRN (17:57)
[2025-01-04] MEDS: MAG HYDROX/AL HYDROX/SIMETH 30 ML UNIT-DOSE CUP PO PRN (22:26)
[2025-01-05] MEDS: BISMUTH SUBSALICYLATE 524 MG/30 ML PO PRN (17:09)
[2025-01-05] MEDS: ACETAMINOPHEN 325 MG TABLET (FP) PO PRN (17:25)
[2025-01-05] MEDS: IBUPROFEN 600 MG TABLET (FP) PO PRN (19:00)
[2025-01-07] MEDS: FUROSEMIDE 40 MG TABLET (FP) PO ONE (11:32)
[2025-01-09 08:36] VITALS: BP 133/78; PULSE 88; RESP 16; TEMP 98.7
[2025-01-09] MEDS: HYDROCHLOROTHIAZIDE 12.5 MG CAPSULE (FP) PO ONE (10:49)
== END 2025-01-09 11:28 | disposition home or self-care (01) | DRG 773 ==
LOC: YASAS 09:36 → Y6N 11:59
PROVIDERS: ADMIT Allergy & Immunology; ATTEND Student in an Organized Health Care Education/Training Program
PROC: HZ2ZZZZ Detoxification Services for Substance Abuse Treatment (ICD-10-PCS; principal; 2024-12-31)
DX: F11.23 Opioid dependence with withdrawal (principal); F13.20 Sedative, hypnotic or anxiolytic dependence, uncomplicated; F14.20 Cocaine dependence, uncomplicated; F17.210 Nicotine dependence, cigarettes, uncomplicated; F19.282 Other psychoactive substance dependence with psychoactive substance-induced sleep disorder; F19.280 Other psychoactive substance dependence with psychoactive substance-induced anxiety disorder; F19.24 Other psychoactive substance dependence with psychoactive substance-induced mood disorder; J45.909 Unspecified asthma, uncomplicated; R60.0 Localized edema; Z59.00 Homelessness unspecified
CPT/HCPCS: 36415; 80053; 80305; 80307; 85027; 86780; 86803; 87389; 93005; 93010